=== PATIENT | male | born 1935 | race Caucasian/White ===

== ENCOUNTER → 2018-10-16 12:25 | Outpatient (CLI) | payer MEDICARE, OTHER, SELFPAY ==
--- NOTE | 2018-10-16 | DI.MRI.S_ITS ---
PROCEDURE: MR STROKE Pre- and post-contrast brain MRI, non-contrast brain MR angiogram, pre- and postcontrast neck MR angiogram INDICATIONS: TIA TECHNIQUE: Brain: Noncontrast axial T1 spin echo, axial T2 fast spin echo, sagittal and axial FLAIR, coronal T2 fast spin echo, axial gradient echo, axial diffusion and ADC through the brain. After the administration of contrast, axial 3D VIBE of the cranial vasculature and brain. Brain MRA: Non-contrast 3-D time of flight MR angiogram, with multiple cadpazw-smsdgxfbx-lzymguqrnr (MIP) reformats performed. Neck MRA: Axial and sagittal TruFISP through the neck. Coronal dynamic MR angiogram during administration of contrast in the arterial and venous phases, with 3-dimenstional idpqpss-qtrzvbkch-piizcesyvi (MIP) reformats constructed from subtraction images. COMPARISON: None. FINDINGS: Image quality: Excellent. BRAIN: CSF spaces: Ventricles are normal in size and shape. Basal cisterns are patent. No extra-axial fluid collections. Brain: No intracranial bleeds or mass effects. Mild diffuse cerebral volume loss is present. Minimal degree of patchy high FLAIR signal within the periventricular and subcortical white matter. Russ-white matter interface is normal. Diffusion weighted images show no acute ischemic insults. Brainstem appears normal. Normal intravascular flow voids are present. No abnormal intracranial enhancement. Skull and face: Calvarial marrow signal is normal. Orbits appear normal. Sinuses: Sinuses and mastoids are clear. BRAIN MR ANGIOGRAM: Anterior circulation: Intracranial internal carotid arteries are normal in size and enhancement. The flow within the paired anterior cerebral arteries is normal and symmetric. The flow within the middle cerebral arteries is normal and symmetric. The anterior communicating artery is seen. No stenoses, occlusions, or aneurysms. Posterior circulation: The visualized portions of the vertebral arteries demonstrate normal caliber, and join to form a normal appearing basilar artery. The flow within the posterior cerebral arteries is normal and symmetric. No stenoses, occlusions, or aneurysms. NECK MR ANGIOGRAM: There is suboptimal evaluation of the proximal great vessels secondary to artifact. Right subclavian artery is grossly patent. Right vertebral artery origin is not seen. Right vertebral artery is otherwise patent. Right common carotid artery is not well seen proximally, but is otherwise patent. Right internal and extra and carotid arteries are patent. Left common carotid artery is not well seen proximally, but is patent distally. Left internal and external carotid arteries are patent. Left subclavian artery is not well seen, but is patent as visualized. Left vertebral artery origin is not seen. The vertebral artery is otherwise patent. Inclusion Paraeducator T2 imaging through the neck is grossly unremarkable. IMPRESSION: BRAIN MRI: 1. No acute process. No recent infarct. 2. Mild volume loss and small vessel ischemic disease. BRAIN MR ANGIOGRAM: Negative cerebral MR angiography. NECK MR ANGIOGRAM: 1. No internal carotid artery stenosis bilaterally. 2. Suboptimally visualized vertebral artery origins which are otherwise patent. 3. Suboptimal evaluation of the proximal great vessels. Dictated by: Sanna Mancia M.D. on 10/16/2018 at 15:00 Approved by: Sanna Mancia M.D. on 10/16/2018 at 15:14
== END ==
PROVIDERS: Family Provider Internal Medicine; PCP Internal Medicine; Visit Provider Family Medicine
DX: G45.9 Transient cerebral ischemic attack, unspecified (principal)
CPT/HCPCS: 70553; A9579

== ENCOUNTER 2020-01-25 13:32 | Emergency (ER) | payer MEDICARE, OTHER, SELFPAY ==
--- NOTE | 2020-01-25 13:40 | DI.RAD.S_ITS ---
PROCEDURE: XR CHEST 1V INDICATIONS: chest pain TECHNIQUE: One view of the chest was acquired. COMPARISON: [facility], , CHEST 1 VIEW, 06/20/2015, 10:53. FINDINGS: Surgical changes and devices: None. Lungs and pleura: Lungs are clear. No pleural effusions or pneumothorax. Mediastinum: Mediastinal contours appear normal. Heart size is normal. Bones and chest wall: No suspicious bony lesions. Overlying soft tissues appear unremarkable. IMPRESSION: No acute cardiopulmonary findings. Dictated by: Ruthie Rueda M.D. on 01/25/2020 at 15:22 Approved by: Ruthie Rueda M.D. on 01/25/2020 at 15:22
[2020-01-25 13:58] VITALS: BP 141/73; PULSE 57; RESP 16; TEMP 35.9; O2SAT 98
[2020-01-25 14:08] LABS: Add Manual Diff / Slide Review NO; Basophils Absolute Auto 0 /uL (0-100); Basophils Percent Auto 0.6 % (0-2); Eosinophils Absolute Auto 200 /uL (0-450); Eosinophils Percent Auto 1.8 % (2-4); Hematocrit 36.9 % (41-53); Hemoglobin 13.1 g/dL (13.5-17.5); Lymphocytes Absolute Auto 700 /uL (1100-4500); Lymphocytes Percent Auto 7.9 % (25-40); Mean Corpuscular HGB Conc 35.4 % (30-36); Mean Corpuscular Hemoglobin 32.1 PG (26-34); Mean Corpuscular Volume 90.7 fL (80-100); Monocytes Absolute Auto 500 /uL (0-900); Monocytes Percent Auto 5.7 % (3-14); Neutrophils Absolute Auto 7400 /uL (1500-7000); Platelet Count 232 X10^3/uL (150-400); Red Blood Cell Count 4.07 X10^6/uL (4.5-5.9); Red Cell Distribution Width 13.7 % (11.6-14.8); White Blood Cell Count 8.8 X10^3/uL (4.5-11.0)
[2020-01-25 14:15] VITALS: BP 127/62; PULSE 58; RESP 20; O2SAT 99
[2020-01-25 14:20] LABS: INR 1.1 (0.9-1.3); Prothrombin Time 12.5 SECONDS (10.1-12.7)
[2020-01-25 14:23] LABS: PTT Partial Thromboplastin Tim 28 SECONDS (26.4-36.2)
[2020-01-25 14:26] LABS: Alanine Aminotransferase 18 IU/L (<50); Albumin 4.3 g/dL (3.5-5.0); Albumin Globulin Ratio 1.4 (1.0-2.8); Alkaline Phosphatase 68 U/L (38-126); Aspartate Aminotransferase 29 IU/L (17-59); BUN Creatinine Ratio 22.8 (6-22); Bilirubin Total 0.6 mg/dL (0.2-1.3); Blood Urea Nitrogen 18 mg/dL (9-20); Calcium 9.7 mg/dL (8.4-10.2); Carbon Dioxide 24 mmol/L (22-32); Chloride 106 mmol/L (98-107); Creatine Kinase 86 U/L (55-170); Estimated Glomerular Filt Rate > 60.0 mL/min (>60); Globulin 3.1 g/dL (1.7-4.1); Glucose 119 mg/dL (80-110); HEMOLYSIS < 15 (0-50); Lipase 58 U/L (23-300); Potassium 4.7 mmol/L (3.4-5.1); Sodium 138 mmol/L (137-145); Total Protein 7.4 g/dL (6.3-8.2)
[2020-01-25 14:36] LABS: Troponin I < 0.012 ng/mL (0.01-0.034)
[2020-01-25 15:05] VITALS: BP 155/63; PULSE 58; RESP 21; O2SAT 98
--- NOTE | 2020-01-25 15:27 | ED_ITS ---
HPI - Dizziness General Chief Complaint: Dizziness Stated Complaint: Dizzy Time Seen by Provider: 01/25/20 15:20 Source: patient Mode of arrival: Family Vehicle Limitations: no limitations History of Present Illness HPI Narrative: CC: dizziness HPI: The patient is an 84-year-old male who states that he was driving out of a long driveway from his son's house when he just did not feel right. He felt dizzy and lightheaded. He denied any specific vertigo but felt that his balance was off and had disequilibrium. He denied any fall or injury. He states that he had a significant headache with profuse sweating. His headache initially was 8/10 in intensity bifrontal and a intense throbbing headache. When he arrived in the emergency department was 4/10 in intensity. He denies that his dizziness felt like he was a satellite tumbling through space. He has a history of atrial fibrillation. He had no significant change in vision no diplopia no blind spots no half vision or partial vision loss. He states that his vision was slightly blurred. He denied any fall or injury to his head neck. He admits to a history of hypertension but denies a history of diabetes mellitus myocardial infarction COPD or asthma. At this time he does not smoke cigarettes nor does he drink alcohol. Related Data Previous Rx's Medication Instructions Recorded meclizine 25 mg PO TID PRN #15 tab 01/25/20 naproxen [Naprosyn] 500 mg PO BID PRN #20 tab 01/25/20 ondansetron HCl [Zofran] 4 mg PO Q6H PRN #15 tab 01/25/20 Allergies Allergy/AdvReac Type Severity Reaction Status Date / Time No Known Drug Allergies Allergy Verified 01/25/20 14:09 Review of Systems Review of Systems Narrative: REVIEW OF SYSTEMS: CONSTITUTIONAL: He denies any fever chills but has profuse sweat when he developed the dizziness and has a. NEUROLOGICAL: He complains of a bifrontal headache without numbness tingling paresthesias anesthesia is paresis or paralysis. EENT: He has had no loss of vision scotomata diplopia but has had blurred vision. CARDIO-PULMONARY: He denies any significant shortness of breath cough chest pain palpitations or dizziness. GASTROINTESTINAL: He denies any abdominal pain but has had nausea with vomiting. He had intense dry heaves associated with his dizziness and headache. He had no hematemesis coffee-ground emesis. He has had normal bowel movements without melena or hematochezia. GENITAL URINARY: He denies any urinary symptoms Patient History Social History Smoking Status: Never smoker Smoking Status: Never smoker alcohol intake frequency: 0-2 drinks per day Substance Use Type: does not use Exam Narrative Exam Narrative: PHYSICAL EXAM: CONSTITUTIONAL: Awake, Alert, Oriented, Coherent, Cooperative in NAD. Does not appear toxic or ill. HEAD: AT/NC EENT: PERRL, FROM of eyes, no discharge, no nystagmus. Full range of motion of his eyes. EARS:No drainage from the ears, Tympanic membranes intact bilaterally, clear EAC NOSE:No epistaxis or nasal drainage MOUTH:Oral mucosa is moist and pink, posterior pharynx is without erythema or exudate. NECK: Supple, no obvious JVD, Trachea is midline without stridor, no palpable LN. SPINE: Palpationof the cervical, Thoracic, Lumbar or Sacral spine reveals no gross deformity or tenderness. No CVA tenderness. THORAX: No deformity, retractions, chest wall tenderness. LUNGS: Clear, symmetrical breath sounds without respiratory distress. HEART: Normal heart tones, regular rhythm and rate without murmur. ABDOMEN: Soft, non-tender, without guarding, rebound, rigidity or palpable mass. EXTREMITIES: No edema, deformity, tenderness or cyanosis. SKIN: No rash, bruising, petechiae or purpura. NEURO: Awake, alert, oriented, conversive, cranial nerves II-XII are symmetrical , moves all 4 extremities and is ambulatory. The patient has symmetrical strength no drift finger to nose is within normal limits. Vcum-sc-xckt is within normal limits. His NIH stroke scale was 0 Initial Vital Signs Initial Vital Signs: Vital Signs Temperature 96.6 F L 01/25/20 13:58 Pulse Rate 57 L 01/25/20 13:58 Respiratory Rate 16 01/25/20 13:58 Blood Pressure 141/73 H 01/25/20 13:58 Pulse Oximetry 98 01/25/20 13:58 Course Course Course Narrative: 1624: persistent diziness , almost fell over 1748: The patient's CT angiogram of his head and neck revealed no significant intracranial arterial abnormality is seen. Within the arteries of the neck no hemodynamically significant stenosis can be seen areas of venous gas are seen including involving the cavernous sinus. Please correlate with known patient history including a difficult IV start. Any quantitative measurements of stenosis were performed usingNASCETcriteria. 1855: The patient's headache is much improved. It is about 2-3 over 10 in intensity. His dizziness has significantly improved. He had no vertigo walking to the bathroom. He will be discharged home on meclizine, Zofran, and Naprosyn. He was advised to follow-up with his primary care physician in 48-72 hours. Orders Ordered: ED Orders 01/25/20 13:40 XR chest 1V Stat EKG-12 Lead Stat 01/25/20 13:57 Comprehensive Metabolic Panel Stat Lipase Stat Partial Thromboplastin Time Stat Prothrombin Time INR Stat Troponin & CK Cardiac Panel Stat 01/25/20 14:00 Complete Blood Count AUTO DIFF Stat 01/25/20 14:04 Thyroid Stimulating Hormone Stat 01/25/20 15:44 CT head/brain wo con Stat 01/25/20 16:26 CT angio head and neck Stat Discontinued Medications Diphenhydramine HCl (Benadryl) 25 mg IV NOW ONE Stop: 01/25/20 15:45 Last Admin: 01/25/20 16:09 Dose: 25 mg Documented by: LAURA Sodium Chloride (Normal Saline 0.9%) 1,000 mls @ 1,000 mls/hr IV BOLUS ONE Stop: 01/25/20 16:43 Last Infusion: 01/25/20 18:33 Dose: 0 mls/hr Documented by: Admin: 01/25/20 16:10 Dose: 1,000 mls/hr Documented by: LAURA Ketorolac Tromethamine (Toradol) 15 mg IV NOW ONE Stop: 01/25/20 15:45 Last Admin: 01/25/20 16:09 Dose: 15 mg Documented by: LAURA Meclizine HCl (Antivert) 25 mg PO NOW ONE Stop: 01/25/20 16:27 Last Admin: 01/25/20 16:53 Dose: 25 mg Documented by: LAURA Methylprednisolone (Solu-Medrol 125 Mg Vial) 125 mg IV NOW ONE Stop: 01/25/20 15:45 Last Admin: 01/25/20 16:09 Dose: 125 mg Documented by: LAURA Metoclopramide HCl (Reglan) 10 mg IV NOW ONE Stop: 01/25/20 15:45 Last Admin: 01/25/20 16:09 Dose: 10 mg Documented by: LAURA Vital Signs Vital signs: Vital Signs - 8 hr 01/25/20 13:58 01/25/20 14:15 01/25/20 15:05 Temperature 96.6 F L Pulse Rate 57 L 58 L 58 L Pulse Rate [Orthostatic Lying] Pulse Rate [Orthostatic Sitting] Pulse Rate [Orthostatic Standing] Respiratory Rate 16 20 21 Blood Pressure 141/73 H Blood Pressure [Left Arm] 127/62 155/63 H Blood Pressure [Orthostatic Lying] Blood Pressure [Orthostatic Sitting] Blood Pressure [Orthostatic Standing] Pulse Oximetry 98 99 98 01/25/20 15:33 01/25/20 16:27 01/25/20 18:05 Temperature Pulse Rate 60 65 Pulse Rate [Orthostatic Lying] 56 L Pulse Rate [Orthostatic Sitting] 58 L Pulse Rate [Orthostatic Standing] 62 Respiratory Rate 20 20 Blood Pressure Blood Pressure [Left Arm] 148/85 H 137/63 Blood Pressure [Orthostatic Lying] 149/79 H Blood Pressure [Orthostatic Sitting] 144/75 H Blood Pressure [Orthostatic Standing] 147/80 H Pulse Oximetry 100 98 MDM - Dizziness Medical Records Attestation: I reviewed the patient's medical records. Lab Data Attestation: I reviewed the patient's lab results. Result diagrams: 01/25/20 14:00 01/25/20 13:57 Labs: Lab Results 01/25/20 01/25/20 01/25/20 Range/Units 13:57 13:57 14:00 WBC 8.8 (4.5-11.0) X10^3/uL RBC 4.07 L (4.5-5.9) X10^6/uL Hgb 13.1 L (13.5-17.5) g/dL Hct 36.9 L (41-53) % MCV 90.7 (80-100) fL MCH 32.1 (26-34) PG MCHC 35.4 (30-36) % RDW 13.7 (11.6-14.8) % Plt Count 232 (150-400) X10^3/uL Neut % (Auto) 84.0 H (50-75) % Lymph % (Auto) 7.9 L (25-40) % [place] % (Auto) 5.7 (3-14) % Eos % (Auto) 1.8 L (2-4) % Baso % (Auto) 0.6 (0-2) % Neut # (Auto) 7400 H (5258-3182) /uL Lymph # (Auto) 700 L (8060-1506) /uL Jefferson # (Auto) 500 (0-900) /uL Eos # (Auto) 200 (0-450) /uL Baso # (Auto) 0 (0-100) /uL PT 12.5 (10.1-12.7) SECONDS INR 1.1 (0.9-1.3) APTT 28 (26.4-36.2) SECONDS Sodium 138 (137-145) mmol/L Potassium 4.7 (3.4-5.1) mmol/L Chloride 106 (98-107) mmol/L Carbon Dioxide 24 (22-32) mmol/L BUN 18 (9-20) mg/dL Creatinine 0.79 (0.66-1.25) mg/dL Estimated GFR > 60.0 (>60) mL/min BUN/Creatinine Ratio 22.8 H (6-22) Glucose 119 H (80-110) mg/dL Calcium 9.7 (8.4-10.2) mg/dL Total Bilirubin 0.6 (0.2-1.3) mg/dL AST 29 (17-59) IU/L ALT 18 (<50) IU/L Alkaline Phosphatase 68 (38-126) U/L Total Creatine Kinase 86 (55-170) U/L CK-MB (CK-2) TNP CK-MB (CK-2) Rel Index TNP Troponin I < 0.012 (0.01-0.034) ng/mL Total Protein 7.4 (6.3-8.2) g/dL Albumin 4.3 (3.5-5.0) g/dL Globulin 3.1 (1.7-4.1) g/dL Albumin/Globulin Ratio 1.4 (1.0-2.8) Lipase 58 (23-300) U/L TSH (0.47-4.68) uIU/mL 01/25/20 Range/Units 14:04 WBC (4.5-11.0) X10^3/uL RBC (4.5-5.9) X10^6/uL Hgb (13.5-17.5) g/dL Hct (41-53) % MCV (80-100) fL MCH (26-34) PG MCHC (30-36) % RDW (11.6-14.8) % Plt Count (150-400) X10^3/uL Neut % (Auto) (50-75) % Lymph % (Auto) (25-40) % Jefferson % (Auto) (3-14) % Eos % (Auto) (2-4) % Baso % (Auto) (0-2) % Neut # (Auto) (1132-7517) /uL Lymph # (Auto) (8570-2258) /uL Jefferson # (Auto) (0-900) /uL Eos # (Auto) (0-450) /uL Baso # (Auto) (0-100) /uL PT (10.1-12.7) SECONDS INR (0.9-1.3) APTT (26.4-36.2) SECONDS Sodium (137-145) mmol/L Potassium (3.4-5.1) mmol/L Chloride (98-107) mmol/L Carbon Dioxide (22-32) mmol/L BUN (9-20) mg/dL Creatinine (0.66-1.25) mg/dL Estimated GFR (>60) mL/min BUN/Creatinine Ratio (6-22) Glucose (80-110) mg/dL Calcium (8.4-10.2) mg/dL Total Bilirubin (0.2-1.3) mg/dL AST (17-59) IU/L ALT (<50) IU/L Alkaline Phosphatase (38-126) U/L Total Creatine Kinase (55-170) U/L CK-MB (CK-2) CK-MB (CK-2) Rel Index Troponin I (0.01-0.034) ng/mL Total Protein (6.3-8.2) g/dL Albumin (3.5-5.0) g/dL Globulin (1.7-4.1) g/dL Albumin/Globulin Ratio (1.0-2.8) Lipase (23-300) U/L TSH 1.48 (0.47-4.68) uIU/mL ECG Data Attestation: I personally reviewed and interpreted this ECG as follows: Interpretation: The patient's EKG reveals sinus bradycardia with a ventricular rate of 58. His [place] interval is prolonged at 232 indicating that the patient has a first-degree AV block. QRS duration is normal at 90 milliseconds QTC is borderline at 451 milliseconds the patient has a normal axis. The patient has a QS wave in lead V1 an inverted T-waves in leads III and V1 there are no other acute diagnostic ST segment changes or T-waves. There is no signs of a stye immediately or infarct/injury. Discharge Plan Departure Patient Disposition: Home Clinical Impression: Dry heaves, Cold feeling, Dizziness Headache Qualifiers: Headache type: unspecified Headache chronicity pattern: acute headache Intractability: not intractable Qualified Code(s): R51 - Headache Discharge Date/Time: 01/25/20 19:17 Instructions: DI for Vertigo, DI for Vomiting -- Adult, DI for Headache Activity Restrictions/Additional Instructions: 1. Follow-up in be rechecked by your primary care physician in 48-72 hours. 2. If you develop a worsening headache, passing out, fever, persistent uncontrolled vomiting and dizziness you need to return to the emergency de partment. 3. Drink 2-3 L of fluid per day. 4 take Naprosyn 500 mg twice a day as needed for pain and headache. 5. Take Zofran 4 mg 1-2 tablets 3 times a day as needed for persistent vomiting and retching. 6. For the dizziness disequilibrium take meclizine 25 mg 3 times a day. Prescriptions: New naproxen [Naprosyn] 500 mg tablet 500 mg PO BID PRN (Reason: pain) Qty: 20 RF: 0 meclizine 25 mg tablet 25 mg PO TID PRN (Reason: dizziness) Qty: 15 RF: 0 ondansetron HCl [Zofran] 4 mg tablet 4 mg PO Q6H PRN (Reason: nausea and vomiting) Qty: 15 RF: 0 Referrals: Huong Dumont MD [Primary Care Provider] -
[2020-01-25 15:33] VITALS: BP 144/75; BP 147/80; BP 149/79; PULSE 56; PULSE 58; PULSE 62
--- NOTE | 2020-01-25 15:44 | DI.CT.S_ITS ---
PROCEDURE: CT HEAD/BRAIN WO CON INDICATIONS: bifrontal headache, dizziness, dry heaves TECHNIQUE: Noncontrast 4.5 mm thick angled axial sections acquired from the foramen magnum to the vertex, with coronal and sagittal reformats. For radiation dose reduction, the following was used: automated exposure control, adjustment of mA and/or kV according to patient size. COMPARISON: [facility], MR, MR STROKE, 10/16/2018, 13:30. FINDINGS: Image quality: Excellent. CSF spaces: Basal cisterns are patent. No extra-axial fluid collections. The ventricles are symmetric in size and shape. Brain: No intracranial bleeds or masses. There is cerebral volume loss for age, with resultant ventricular and sulcal prominence. There are periventricular and deep white matter chronic small vessel ischemic changes. 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 Skull and face: Calvarium and visualized facial bones appear intact, without suspicious lesions. Sinuses: Visualized sinuses and mastoids are clear. IMPRESSION: No acute intracranial disease process. Dictated by: Ginette Zimmerman MD, PhD on 01/25/2020 at 16:12 Approved by: Ginette Zimmerman MD, PhD on 01/25/2020 at 16:16
[2020-01-25] MEDS: diphenhydrAMINE 50 MG/ML VIAL 25 MG IV (16:09)
[2020-01-25] MEDS: METOCLOPRAMIDE 10 MG/2 ML INJ IV (16:09)
[2020-01-25] MEDS: KETOROLAC 60 MG/2 ML VIAL 15 MG IV (16:09)
[2020-01-25] MEDS: methylPREDNISolone 125 MG/2 ML VIAL IV (16:09)
[2020-01-25] MEDS: SODIUM CHLORIDE 0.9% 1,000 ML 1000 ML IV (16:10)
--- NOTE | 2020-01-25 16:26 | DI.CT.S_ITS ---
PROCEDURE: CT ANGIO HEAD AND NECK INDICATIONS: persistent dysequilibrium with vomiting TECHNIQUE: Noncontrast images were performed earlier in the day and not repeated. After the administration of intravenous contrast, 1 mm thick sections acquired from the aortic arch through the [place] of [place]. Post-contrast 4.5 mm thick sections then re-acquired from the foramen magnum to the vertex. 3-dimensional fizcxlo-wtxtwtquz-ylylixvela (MIP) and/or volume rendering reformats were acquired of the central intracranial vasculature and neck separately. COMPARISON: [facility], MR, MR STROKE, 10/16/2018, 13:30. [facility], CT, CT HEAD/BRAIN WO CON, 01/25/2020, 15:46. FINDINGS: Image quality: Excellent. BRAIN: CSF spaces: Ventricles are normal in size and shape. Basal cisterns are patent. No extra-axial fluid collections. Brain: No midline shift. No intracranial bleeds or masses. Russ-white matter interface appears intact. There is a venous gas can be seen, including within the cavernous sinus. Skull and face: Calvarium and facial bones appear intact, without suspicious lesions. Orbits appear normal. Sinuses: Sinuses and mastoids are clear. HEAD CT ANGIOGRAPHY: Anterior circulation: Intracranial internal carotid arteries are normal in size and flow. The flow within the paired anterior cerebral arteries is normal and symmetric. The flow within the middle cerebral arteries is normal and symmetric. The anterior communicating artery is seen. No aneurysms are seen. Posterior circulation: Visualized portions of the vertebral arteries demonstrate normal caliber, and join to form a normal appearing basilar artery. Flow within the posterior cerebral arteries is normal and symmetric. No aneurysms are seen. NECK CT ANGIOGRAPHY: Carotid system: The great vessels demonstrate a conventional anatomy as they arise from the aortic arch. The origins of the common carotid arteries appear patent. The common carotid arteries demonstrate normal caliber. The proximal common carotid arteries are widely tortuous. The bifurcation regions are both widely patent. The internal carotid arteries demonstrate normal calibers and courses. Posterior circulation: The origins of the vertebral arteries both appear widely patent. The more superior extracranial portions of both vertebral arteries also demonstrate normal courses and calibers. They join to form a normal appearing basilar artery. Soft tissues: Visualized neck soft tissues demonstrate no suspicious abnormalities. Bones: No suspicious bony lesions. Relatively prominent cervical spine degenerative changes are seen. Mild anterolisthesis is seen at C2-C3, with mild retrolisthesis at C3-C4. Minimal retrolisthesis is seen at C4-C5 and C5-C6. IMPRESSION: No significant intracranial arterial abnormality is seen. Within the arteries of the neck, no hemodynamically significant stenosis can be seen. Areas of venous gas are seen, including involving the cavernous sinus. Please correlate with known patient history, including a difficult IV start. Any quantitative measurements of stenosis were performed using NASCET criteria. Dictated by: David Arteaga M.D. on 01/25/2020 at 15:55 Approved by: David Arteaga M.D. on 01/25/2020 at 16:11
[2020-01-25 16:27] VITALS: BP 148/85; PULSE 60; RESP 20; O2SAT 100
[2020-01-25 16:33] LABS: Thyroid Stimulating Hormone 1.48 uIU/mL (0.47-4.68)
[2020-01-25] MEDS: MECLIZINE HCL 12.5 MG TABLET 25 MG PO (16:53)
[2020-01-25 18:05] VITALS: BP 137/63; PULSE 65; RESP 20; O2SAT 98
== END 2020-01-25 19:17 | disposition home or self-care (01) ==
PROVIDERS: Emergency Provider Emergency Medicine; Family Provider Internal Medicine; PCP Internal Medicine
DX: R42 Dizziness and giddiness (principal); I10 Essential (primary) hypertension; R51 Headache; R11.10 Vomiting, unspecified; R68.89 Other general symptoms and signs
CPT/HCPCS: 36415; 70450; 70496; 70498; 71045; 80053; 82550; 83690; 84443; 84484; 85025; 85610; 85730; 93005; 96361; 96374; 96375; 99284; J1200; J1885; J2765; J2930

== ENCOUNTER → 2020-04-25 09:49 | Outpatient (CLI) | payer MEDICARE, OTHER, SELFPAY ==
[2020-04-27 15:26] LABS: COVID19 Sendout Not Detected (Not Detect)
== END ==
PROVIDERS: Family Provider Internal Medicine; PCP Internal Medicine; Visit Provider Physician Assistant
DX: Z11.59 Encounter for screening for other viral diseases (principal)
CPT/HCPCS: 87635

== ENCOUNTER → 2020-04-28 09:32 | Outpatient (CLI) | payer MEDICARE, OTHER, SELFPAY ==
--- NOTE | 2020-04-28 | DI.NM.S_ITS ---
PROCEDURE: NM CALEB PERF SPECT REST & STR Rest and exercise myocardial perfusion SPECT with gated imaging and ejection fraction RADIOPHARMACEUTICAL: 13.5 mCi Tc-99m sestamibi IV at rest and 26.0 mCi Tc-99m sestamibi IV at peak exercise. A two day-protocol was performed. INDICATIONS: Paroxysmal atrial fibrillation TECHNIQUE: Radiopharmaceutical was injected at peak stress test, and also at rest. SPECT images were obtained. SPECT myocardial perfusion images were displayed in short axis, horizontal long axis, and vertical long axis views. Gated images were reviewed using [employer] software. COMPARISON: None. CARDIAC STRESS: A standard lexiscan 0.4mg IV X1 protocol was used as stress agent. Hemodynamic data: There is normal blood pressure response to exercise stress. Patient had atrial fibrillation with rapid ventricular response during the entire study (HR 120s-140sbpm) Symptoms: Patient denied chest pain during exercise. EKG: No diagnostic EKG changes of ischemia; no ectopy. FINDINGS: Raw data: There is good myocardial labeling by radiotracer. No significant motion artifacts. Yplv-ek-qwxed ratio is 0.38 (normal is less than 0.38 for sestamibi tracer, and less than 0.50 for thallium tracer). Left ventricle function: Gated images demonstrate normal left ventricle wall thickening. No segmental wall motion abnormality. No transient ischemic dilation; TID is 0.94 (normal less than 1.3). The left ventricle resting end-diastolic volume is 65 mL. Left ventricle stress ejection fraction is 83%; normal values are above 45%. Myocardial perfusion: There is normal distribution of activity in the left and right ventricular myocardium. No fixed or reversible perfusion defects. IMPRESSION: Low risk, normal pharmaceutical nuclear stress test. 1) No perfusion evidence of ischemia or infarction. 2) Normal left ventricular size, wall motion, and systolic function. 3) No angina during the study. 4) Atrial fibrillation with rapid ventricular response present during the entire study (HR 120s-140bpm). 5) Compared to the nuclear stress test done 01/21/2010, no changes in perfusion images but atrial fibrillation with RVR is noted on the current study. Dictated by: Abdoul Fuentes MD on 04/28/2020 at 16:39 Approved by: Abdoul Fuentes MD on 04/28/2020 at 16:44
== END ==
PROVIDERS: Family Provider Internal Medicine; Referring Provider Internal Medicine Cardiovascular Disease; Visit Provider Internal Medicine Cardiovascular Disease
DX: I48.0 Paroxysmal atrial fibrillation (principal)
CPT/HCPCS: 78452; 93017; A9502; J2785

== ENCOUNTER → 2020-05-10 11:26 | Outpatient (CLI) | payer MEDICARE, OTHER, SELFPAY ==
[2020-05-11 22:42] LABS: COVID19 Sendout Not Detected (Not Detect)
== END ==
PROVIDERS: Family Provider Internal Medicine; Visit Provider Physician Assistant
DX: Z11.59 Encounter for screening for other viral diseases (principal)
CPT/HCPCS: 87635

== ENCOUNTER → 2021-08-19 10:15 | Outpatient (CLI) | payer MEDICARE, OTHER, SELFPAY ==
[2021-08-19 11:18] LABS: COVID19 -Nasal RAPID Negative (Negative)
== END ==
PROVIDERS: Family Provider Internal Medicine; Visit Provider Surgery
DX: Z01.812 Encounter for preprocedural laboratory examination (principal); Z20.822 Contact with and (suspected) exposure to COVID-19
CPT/HCPCS: 87635; C9803

== ENCOUNTER 2021-08-20 11:45 | Day surgery (SDC) | payer MEDICARE, OTHER, SELFPAY ==
[2021-08-20 12:13] VITALS: BP 132/81; PULSE 60; RESP 16; TEMP 36.2; O2SAT 98; BMI 32.1
[2021-08-20] MEDS: LACTATED RINGERS 1,000 ML 200 ML IV (12:50)
--- NOTE | 2021-08-20 13:10 | PM.HP.1 ---
History of Present Illness History of Present Illness Date Patient Seen: 08/20/21 Time Patient Seen: 13:10 Chief complaint: SDC Narrative: 85-year-old man with bright red blood per rectum here for colonoscopy. Previously seen March 2021 please refer to the H&P for further detail. No interval changes in health. Continues to have intermittent bright red blood. Patient History Medical History GERD (gastroesophageal reflux disease) Hyperlipidemia Hypertension Lower urinary tract symptoms (LUTS) DIAMOND (obstructive sleep apnea) Osteoarthritis Steroid-induced acne Surgical History History of bilateral knee arthroplasty History of right hip replacement Family & Social History Family History Son Cancer Brother Cancer Social History: household members spouse Tobacco & Substance use: Smoking Status Never smoker alcohol intake current alcohol intake frequency 0-2 drinks per day Substance Use Type does not use Meds Home Medications and Allergies Home Medications Medication Instructions Recorded Confirmed Type apixaban 5 mg tablet (Eliquis) 5 mg PO BID tab 04/02/21 04/02/21 History metoprolol tartrate 50 mg tablet 50 mg PO BID tab 04/02/21 04/02/21 History Allergies Allergy/AdvReac Type Severity Reaction Status Date / Time No Known Drug Allergies Allergy Verified 08/20/21 12:11 Exam Vital Signs (past 8 hours): - 08/20/21 12:13 Temperature 97.1 F L Pulse Rate 60 Respiratory Rate 16 Blood Pressure 132/81 Pulse Oximetry 98 Oxygen Delivery Method Room Air Narrative Exam Narrative: GENERAL: Elderly male in no apparent distress HEENT: No scleral icterus CV: Regular rate, no peripheral edema LUNGS: No increased work of breathing. Patient speaks in full sentences without oxygen support. ABDOMEN: Soft, non-tender, non-distended NEURO: Nonfocal, normal strength throughout, normal gait. SKIN: Warm and dry Assessment & Plan Assessment and plan (1) Rectal bleeding: Status: Acute Assessment & Plan narrative: The patient requires colonoscopy secondary to rectal bleeding. Technical details were discussed. Risks, benefits, alternatives explained. Risks including but not limited to myocardial infarction, aspiration, bleeding, pain, missed lesion, incomplete examination, need for further radiographic studies, colonic perforation, and need for major abdominal surgery were discussed. All questions were answered to their satisfaction, and they are in agreement with this plan. Time Spent With Patient Critical Care time: I spent a total of [] minutes of critical care time on this patient's care today; this time is exclusive of procedural time.
[2021-08-20] MEDS: MIDAZOLAM 5 MG/5 ML VIAL IV (13:31)
[2021-08-20] MEDS: fentaNYL 250 MCG/5 ML INJ IV (13:32)
--- NOTE | 2021-08-20 13:35 | P.OP.COLON_ITS ---
Operative Date/Time/Diagnoses Date of procedure: 08/20/21 Time of procedure: 13:35 Pre-op diagnosis: Rectal bleeding Post-op diagnosis: other (Internal hemorrhoids) Procedure & Clinicians Study performed: Colonoscopy Same procedure as scheduled: Yes Indications: Rectal bleeding Surgeon: Joe Solitario Procedure Notes Procedure in detail: Medications: Conscious sedation using 4 mg IV midazolam and 100mcg IV of fentanyl The history and physical was performed/updated and the patient is ASA class is *. The procedure was discussed in detail with the patient. Potential risks complications including infection, bleeding, missed diagnosis, perforation, need for surgery, and were explained. Their questions were answered and informed consent was obtained. Patient was brought to the procedure room and placed standard monitoring eq uipment. The patient's vital signs were monitored continuously throughout the entire procedure. Prior to starting time-out was performed. The patient was placed in the left lateral recumbent position. Procedural sedation was administered. Examination began with a thorough inspection of the perianal area there was no evidence of fissures, fistulae, external hemorrhoids or cutaneous malignancy. The colonoscopy scope was then placed into the anal canal and was advanced to the cecum, which was identified by the ileocecal valve, the appendiceal orifice and the confluence of the taenia. The scope was then slowly withdrawn examining colon thoroughly in all directions, irrigating it of any residual stool. FINDINGS 1. No colonic polyps masses or inflammation 2. Grade 2 internal hemorrhoids nonbleeding The patient tolerated the procedure well. They will be discharged once criteria are met. The prep was of good/excellent quality. The withdrawl time was 7 minutes. The sedation time was 16 minutes. Specimen(s): none sent Complications: none Impression: Internal hemorrhoids Post-procedure Recommendations: High fiber diet Disposition: same day surgery
[2021-08-20 13:39] VITALS: BP 127/73; PULSE 60; RESP 16; TEMP 36.5; O2SAT 98
[2021-08-20 13:43] VITALS: BP 115/68; PULSE 62; RESP 12; O2SAT 95
[2021-08-20 13:48] VITALS: BP 105/68; PULSE 59; RESP 22; O2SAT 94
[2021-08-20 13:53] VITALS: BP 137/72; PULSE 56; RESP 16; O2SAT 97
== END 2021-08-20 14:22 | disposition home or self-care (01) ==
PROVIDERS: Family Provider Internal Medicine; Referring Provider Surgery; Visit Provider Surgery
PROC: 0DJD8ZZ Inspection of Lower Intestinal Tract, Via Natural or Artificial Opening Endoscopic (ICD-10-PCS; CPT 45378; principal; 2021-08-20 13:00)
DX: K64.1 Second degree hemorrhoids (principal); K21.9 Gastro-esophageal reflux disease without esophagitis; E78.5 Hyperlipidemia, unspecified; I10 Essential (primary) hypertension; G47.33 Obstructive sleep apnea (adult) (pediatric)
CPT/HCPCS: 45378; 99152; J2250; J3010

== ENCOUNTER → 2021-11-02 09:06 | Outpatient (CLI) | payer MEDICARE, OTHER, SELFPAY ==
[2021-11-02 12:44] LABS: COVID19 -Nasal RAPID Negative (Negative)
== END ==
PROVIDERS: Family Provider Internal Medicine; Visit Provider Surgery
DX: Z01.812 Encounter for preprocedural laboratory examination (principal); Z20.822 Contact with and (suspected) exposure to COVID-19
CPT/HCPCS: 87635; C9803

== ENCOUNTER 2021-11-03 12:48 | Day surgery (SDC) | payer MEDICARE, OTHER, SELFPAY ==
[2021-11-03] VITALS (7 sets, daily range): BP systolic 117–133; BP diastolic 67–78; PULSE 54–64; RESP 12–21; TEMP 36.3–36.6; O2SAT 95–97; BMI 32.0
--- NOTE | 2021-11-03 | PATH_ITS ---
[facility] Accession Number: [id number] No. of containers..02 Tissue . 01 Material submitted: . PART A: gastrointestinal site - RANDOM GASTRIC BIOPSY PART B: esophagus - ESOPHAGEAL BIOPSY . 02 Diagnosis: A. Random Gastric Biopsy: Portions of gastric body type mucosa with mild chronic inflammation and patchy dilated fundic glands. Negative for Helicobacter organisms by immunohistochemistry studies. Negative for intestinal metaplasia. Negative for dysplasia or malignancy. . B. Esophageal Biopsy: Squamous mucosa with increased intraepithelial eosinophils (up to 25 per high power field. See comment. Negative for dysplasia and malignancy. Fragments of fibrinopurulent exudate, suggestive of nearby ulceration, are also present. Negative for fungal organisms by PAS stain. [facility] 11/06/2021 1605 Local . 02 Comment: B. In the proper clinical setting, the histopathologic appearance would support a clinical impression of eosinophilic esophagitis. The differential diagnosis includes drug reaction, gastroesophageal reflux, and food allergies. . There is no evidence of viral cytopathic effect. . 02 Electronically signed: . Hien Drew MD, Pathologist NPI- [id number] . 01 Gross description: . Part A: RANDOM GASTRIC BIOPSY: Received in formalin are 2 fragment(s) of salmon, soft tissue measuring 0.1 x 0.1 x 0.1 cm to 0.3 x 0.3 x 0.2 cm submitted entirely in 1 cassette(s) Part B: ESOPHAGEAL BIOPSY: Received in formalin are 4 fragment(s) of salmon, soft tissue measuring 0.1 x 0.1 x 0.1 cm to 0.3 x 0.2 x 0.2 cm submitted entirely in 1 cassette(s) /KEANU 11/05/2021 0055 Local . 02 Microscopic: . A. An immunohistochemical stain was performed on block A1 to evaluate for Helicobacter organisms and is negative for Helicobacter organisms by immunohistochemistry studies. The control stain showed appropriate reactivity. . B. A PAS stain is performed on block B1 to evaluate for fungal organisms and is negative for fungal organisms by PAS stain. The control stain showed appropriate reactivity. . * This test was developed and its performance characteristics determined by [facility]. It has not been cleared or approved by the U.S. Food and Drug Administration. The FDA has determined that such clearance or approval is not necessary. This test is used for clinical purposes. It should not be regarded as investigational or for research. . 02 Pathologist provided ICD-10: R13.10 . 02 CPT . 624432, 982846, U96201, 391163 Specimen Comment: A courtesy copy of this report has been sent to [phone] Performed at: 01 [facility] [address] [id number] MD Raj Ocampo MD Phone: [phone] Performed at: 02 [facility] [address] [place] [id number] MD Gracie Goldstein MD Phone: [phone]
[2021-11-03] MEDS: LACTATED RINGERS 1,000 ML 200 ML IV (13:23)
--- NOTE | 2021-11-03 14:25 | PM.PREOP ---
Pre-operative Note Interval Note History & Physical reviewed/Exam performed by Physician: Yes Changes to H&P: No
[2021-11-03] MEDS: LIDOCAINE 4% SOLN 50 ML 20 ML TOP (14:39)
[2021-11-03] MEDS: MIDAZOLAM 5 MG/5 ML VIAL IV (14:42)
[2021-11-03] MEDS: fentaNYL 250 MCG/5 ML INJ IV (14:42)
--- NOTE | 2021-11-03 14:58 | PM.OP.EGD ---
Operative Date/Time/Diagnoses Date of procedure: 11/03/21 Time of procedure: 14:58 Pre-op diagnosis: Esophageal dysphagia Post-op diagnosis: other (Gastritis and esophagitis) Procedure & Clinicians Study performed: Esophagoduodenoscopy Same procedure as scheduled: Yes Indications: Dysphagia Surgeon: Joe Solitario Procedure Notes Procedure in detail: Patient placed in left lateral decubitus position. Time out was performed. Procedural sedation was administered with Versed and Fentanyl. A bite block was placed. the scope was inserted into the mouth and advanced through the esophagus and into the stomach. The esophagus was notable for moderate esophagitis with friable mucosa. Random biopsies of the esophagus were performed with biopsy forceps. The stomach was notable for gastritis random biopsies were taken there was no distinct ulcers or active bleeding. The scope was retroflexed within the stomach and there was a small hiatal hernia. The scope was withdrawn into the esophagus the Z line was seen at 40 cm from the incisions. There was no Matthews's esophagitis or masses or strictures. Stomach was desufflated and scope removed. Patient tolerated procedure well. Specimen(s): other (Random gastric and esophageal) Complications: none Impression: Gastritis and esophagitis Post-procedure Plan for aftercare: Omeprazole 20 mg twice daily Disposition: same day surgery
== END 2021-11-03 15:45 | disposition home or self-care (01) ==
PROVIDERS: Family Provider Internal Medicine; PCP Internal Medicine; Referring Provider Surgery; Visit Provider Surgery
PROC: 0DJ08ZZ Inspection of Upper Intestinal Tract, Via Natural or Artificial Opening Endoscopic (ICD-10-PCS; CPT 43235; principal; 2021-11-03 14:30)
DX: K29.50 Unspecified chronic gastritis without bleeding (principal); K21.00 Gastro-esophageal reflux disease with esophagitis, without bleeding; G47.33 Obstructive sleep apnea (adult) (pediatric); I10 Essential (primary) hypertension; K44.9 Diaphragmatic hernia without obstruction or gangrene
CPT/HCPCS: 43239; J2250; J3010

== ENCOUNTER 2021-11-08 01:39 | Emergency (ER) | payer MEDICARE, OTHER, SELFPAY ==
[2021-11-08 01:51] VITALS: BP 203/91; PULSE 67; RESP 18; O2SAT 97; BMI 31.3
[2021-11-08 01:55] VITALS: TEMP 36.1
--- NOTE | 2021-11-08 01:56 | PC.NURSE ---
right flank and back pain that feels like previous kidney stones, pt states he has always passed his stones
--- NOTE | 2021-11-08 02:05 | DI.CT.S_ITS ---
PROCEDURE: CT KIDNEY URETER BLADDER (KUB) INDICATIONS: right flank pain TECHNIQUE: Axial sections were acquired from the lung bases to the pubic symphysis. Coronal and sagittal reformats were performed. For radiation dose reduction, the following was used: automated exposure control, adjustment of mA and/or kV according to patient size. COMPARISON: [facility], CT, KIDNEY/ URETER/BLADDER, 08/06/2017, 19:15. FINDINGS: Image quality: Excellent. Lung bases: Unremarkable. And small hiatal hernia Heart: No significant findings. URINARY: Right Kidney: Mild perinephric stranding present. Small nonobstructing bilateral calculi present. Right Ureter: 3.4 x 3.3 mm calculus noted at the right ureterovesical junction resulting in jizq-[id number]-[id number] right hydronephrosis and hydroureter. Left Kidney: Small nonobstructing bilateral renal calculi present. 2 cm low-density lesion in the left renal cortex probably reflects cyst, stable from the prior. No hydronephrosis. Left Ureter: No hydroureter. Bladder: Normal wall thickness. No stones. ABDOMEN: Liver: Unremarkable. Gallbladder: Unremarkable. Biliary ducts: Unremarkable. Pancreas: Unremarkable. Spleen: Unremarkable. Adrenal Glands: Unremarkable. Stomach and Bowel: Stomach, small bowel loops, and colon are unremarkable. Peritoneum: No abnormal intraperitoneal fluid. No free air. Multiple diverticula arise from the sigmoid colon without evidence of diverticulitis. Ventral Wall: No hernia. Abdominal Nodes: No enlarged retroperitoneal or mesenteric lymph nodes. Vessels: Aorta and inferior vena cava are normal in size. PELVIS: Pelvic Organs: Unremarkable. Pelvic Nodes: Unremarkable. Miscellaneous: No inguinal hernias are seen. Bones: Total right hip prosthesis in good position. IMPRESSION: 1. Small 3.4 mm calculus at the right ureterovesical junction results in jeap-[id number]-[id number] right hydronephrosis/hydroureter. 2. Incidental bilateral nonobstructing renal calculi. Left renal cysts. Diverticulosis without evidence of diverticulitis. Note: Final report is concordant with preliminary interpretation by [facility] Approved by: Edvin López M.D. on 11/08/2021 at 6:47
--- NOTE | 2021-11-08 02:06 | ED.ABDPAIN ---
HPI - Abdominal Pain General Chief Complaint: Urogenital-Male Stated Complaint: kidney pain/stones x2 hours Time Seen by Provider: 11/08/21 01:45 Source: patient Mode of arrival: Ambulatory History of Present Illness HPI narrative: Patient is an 86-year-old male history of atrial fibrillation on Eliquis and kidney stones presenting today with right flank pain. He says it started about an hour half ago. He says it feels like previous kidney stones. He has never had any intervention for them. He thought maybe his urine was dark a few days prior but really has not noticed any discomfort. He denies any painful or frequent urination. This evening he got very nauseous and had intense pain. It is radiating around to the front. No chest pain palpitations or shortness of breath. Related Data Home Medications Medication Instructions Recorded Confirmed apixaban 5 mg tablet (Eliquis) 5 mg PO BID tab 04/02/21 11/08/21 metoprolol tartrate 50 mg tablet 50 mg PO BID tab 04/02/21 11/08/21 Previous Rx's Medication Instructions Recorded omeprazole 20 mg tablet,delayed 20 mg PO BID #90 tab 11/03/21 release hydrocodone 5 mg-acetaminophen 325 1 tab PO Q6H PRN #10 tab 11/08/21 mg tablet ondansetron 4 mg disintegrating 4 mg PO Q8H PRN #10 tab 11/08/21 tablet Allergies Allergy/AdvReac Type Severity Reaction Status Date / Time No Known Drug Allergies Allergy Verified 11/03/21 13:06 Review of Systems Review of Systems Narrative: GENERAL: Denies chills, fatigue, malaise, fever, sweats, travel HEENT: Denies sinus pain, ear pain, sore throat, difficulty swallowing, neck pain RESPIRATORY: Denies dyspnea, cough, wheezing, hemoptysis, sputum. CARDIOVASCULAR: Denies chest pain, palpitations, orthopnea, edema GASTROINTESTINAL: See HPI : See HPI MUSCULOSKELETAL: Denies weakness, joint pain, or bony pain SKIN: No rash, no erythema, no pruritus NEUROLOGIC: Denies weakness, dizziness, headache, numbness, change in speech, confusion PSYCHIATRIC: No concerning psychosocial issues. 12 point review of systems is negative except for those stated above and HPI Patient History Medical History GERD (gastroesophageal reflux disease) Hyperlipidemia Hypertension Lower urinary tract symptoms (LUTS) DIAMOND (obstructive sleep apnea) Osteoarthritis Steroid-induced acne Surgical History History of bilateral knee arthroplasty History of right hip replacement Family History Son Cancer Brother Cancer Social History marital status: household members: none Smoking Status: Never smoker alcohol intake: current caffeine: Yes Smoking Status: Never smoker alcohol intake frequency: a few times a week Substance Use Type: does not use Exam Initial Vital Signs Initial Vital Signs: Vital Signs Pulse Rate 67 11/08/21 01:51 Respiratory Rate 18 11/08/21 01:51 Blood Pressure 203/91 H 11/08/21 01:51 Pulse Oximetry 97 11/08/21 01:51 GENERAL: Alert 86-year-old male appears uncomfortable HEENT: Head atraumatic,EOMI, pupils reactive, face symmetric, moist mucous membranes CARDIOVASCULAR: Regular rate and rhythm without murmurs, rubs or gallops. RESPIRATORY: Breath sounds equal bilaterally, no wheezes rales or rhonchi. ABDOMEN: Soft, nontender. Normoactive bowel sounds all 4 quadrants. No guarding or rebound. : Mild right CVA tenderness EXTREMITIES: Normal range of motion, no clubbing or edema. Neurovascularly intact NEUROLOGICAL: Alert and oriented x4.Normal gait and speech. SKIN: Warm, dry, no laceration, no petechiae, no rashes or lesions. Course Orders Ordered: ED Orders 11/08/21 02:00 Complete Blood Count AUTO DIFF Stat Comprehensive Metabolic Panel Stat Lipase Stat 11/08/21 02:05 CT kidney ureter bladder (KUB) Stat 11/08/21 04:25 Urine Culture Stat Urine Microscopic Stat Discontinued Medications Hydrocodone Bitart/Acetaminophen (Hydrocodone/Acet 5/325 Prepack) 1 bottle MISC SEEINSTR ONE Stop: 11/08/21 04:16 Last Admin: 11/08/21 04:40 Dose: 1 bottle Documented by: RADHIKA Hydromorphone HCl (Hydromorphone 0.5 Mg Inj) 0.5 mg IV NOW ONE Stop: 11/08/21 02:06 Last Admin: 11/08/21 02:11 Dose: 0.5 mg Documented by: RADHIKA Hydromorphone HCl (Hydromorphone 0.5 Mg Inj) 0.5 mg IV NOW ONE Stop: 11/08/21 03:05 Last Admin: 11/08/21 03:06 Dose: 0.5 mg Documented by: RADHIKA Ondansetron HCl (Ondansetron 4 Mg/2 Ml Inj) 4 mg IV NOW ONE Stop: 11/08/21 02:06 Last Admin: 11/08/21 02:11 Dose: 4 mg Documented by: RADHIKA Ondansetron HCl (Ondansetron 4 Mg Odt Prepack) 1 bottle MISC SEEINSTR ONE Stop: 11/08/21 04:16 Last Admin: 11/08/21 04:40 Dose: 1 bottle Documented by: RADHIKA Vital Signs Vital signs: Vital Signs - 8 hr 11/08/21 01:51 11/08/21 01:55 11/08/21 04:49 Temperature 97 F L Pulse Rate 67 71 Respiratory Rate 18 18 Blood Pressure 203/91 H 185/94 H Pulse Oximetry 97 98 MDM - Abdominal Pain Lab Data Result diagrams: 11/08/21 02:00 11/08/21 02:00 Labs: Lab Results 11/08/21 11/08/21 11/08/21 Range/Units 02:00 02:00 04:25 WBC 8.2 (4.5-11.0) X10^3/uL RBC 4.19 L (4.5-5.9) X10^6/uL Hgb 12.8 L (13.5-17.5) g/dL Hct 38.0 L (41-53) % MCV 90.6 (80-100) fL MCH 30.7 (26-34) PG MCHC 33.8 (30-36) % RDW 13.2 (11.6-14.8) % Plt Count 239 (150-400) X10^3/uL Neut % (Auto) 77.8 H (50-75) % Lymph % (Auto) 11.9 L (25-40) % [place] % (Auto) 7.4 (3-14) % Eos % (Auto) 2.2 (2-4) % Baso % (Auto) 0.7 (0-2) % Neut # (Auto) 6400 (3692-6884) /uL Lymph # (Auto) 1000 L (2687-9849) /uL [place] # (Auto) 600 (0-900) /uL Eos # (Auto) 200 (0-450) /uL Baso # (Auto) 100 (0-100) /uL Sodium 139 (137-145) mmol/L Potassium 3.8 (3.4-5.1) mmol/L Chloride 105 (98-107) mmol/L Carbon Dioxide 27 (22-32) mmol/L BUN 13 (9-20) mg/dL Creatinine 0.98 (0.66-1.25) mg/dL Estimated GFR > 60.0 (>60) mL/min BUN/Creatinine Ratio 13.3 (6-22) Glucose 127 H (80-110) mg/dL Calcium 8.9 (8.4-10.2) mg/dL Total Bilirubin 0.5 (0.2-1.3) mg/dL AST 31 (17-59) IU/L ALT 20 (<50) IU/L Alkaline Phosphatase 61 (38-126) U/L Total Protein 8.4 H (6.3-8.2) g/dL Albumin 4.7 (3.5-5.0) g/dL Globulin 3.7 (1.7-4.1) g/dL Albumin/Globulin Ratio 1.3 (1.0-2.8) Lipase 76 (23-300) U/L Urine RBC 30-100/hpf H (0-5/HPF) Urine WBC 0-1/hpf (0-5/HPF) Ur Squamous Epith Cells 0-1 /hpf (0-5/HPF) Urine Bacteria Few (2-10) H (None) Urine Mucus 1+ H (Negative) Ur Culture Indicated? Culture not indicate Point of care testing: Urine Dip Bedside Urine Glucose Negative Bedside Urine Bilirubin - Negative Bedside Urine Ketone - Negative Urine Specific Rhe[place] 1.015 Bedside Urine Occult Blood +++ Bedside Urine pH 7 Bedside Urine Protein - Negative Bedside Urine Urobilinogen - Negative Bedside Urine Nitrite - Negative Bedside Urine Leukocytes - Negative Esterase Imaging Data CT scan - abdomen/pelvis: Radiologist's Impression: Preliminary report 3.4 mm right UVJ junction stone with yplq-bk-joyjvaeh right hydronephrosis and perinephric fat stranding MDM Narrative Medical decision making narrative: Patient is given Lomotil pain. Still has intermittent pain and discomfort. Blood work is overall reassuring no sign of infection at this time. He did stand up to use the restroom he ambulated to the restroom without any assistance but slightly unsteady. Not a candidate for Toradol due to Eliquis. At this time recommend outpatient follow-up. I anticipate he will pass his kidney stone soon. Discharge Plan Departure Patient Disposition: Home Clinical Impression: Kidney stones Instructions: DI for Kidney Stones Activity Restrictions/Additional Instructions: *You have been diagnosed with kidney stone *What to do: At this time you do have a small right-sided kidney stone. I anticipate that you pass it in the next 24 hours. No sign of infection. *Continue to take medications as directed [place] 1 tablet every 6 hours if needed for severe pain Zofran 4 mg every 8 hours if needed for nausea or vomiting *Follow up with your primary care provider in 2-3 days or call [phone] *Return to ER if you should have increasing pain persistent vomiting, fever or any new, worsening or concerning symptoms CONTROLLED SUBSTANCE DISCHARGE (Narcotoic/benzodiazepine/Flexeril/Phenergan) 1. You have been prescribed narcotic medications, it does have acetaminophen/Tylenol/paracetamol in it, DO NOT TAKE MORE THAN 4,00mg in 24 hours of Tylenol. TRAMADOL DOES NOT CONTAIN TYLENOL 2. Please understand that we cannot provide further refills of narcotics, benzodiazepines or controlled substances through the ED and her pain management will need to be through your provider. 3. While on these medications you cannot drive or operate heavy machinery. 4. You cannot sign legal documents or perform any duties such as this. 5. As long as you're taking opiate pain medications he should also be taking a stool softener such as Colace, Dulcolax, MiraLAX or prune juice, to help avoid constipation. Prescriptions: New hydrocodone-acetaminophen 5-325 mg tablet 1 tab PO Q6H PRN (Reason: pain) Qty: 10 0RF ondansetron 4 mg tablet,disintegrating 4 mg PO Q8H PRN (Reason: nausea and vomiting) Qty: 10 0RF No Action Eliquis 5 mg tablet 5 mg PO BID 0RF metoprolol tartrate 50 mg tablet 50 mg PO BID 0RF omeprazole 20 mg tablet,delayed release (DR/EC) 20 mg PO BID Qty: 90 0RF Referrals: Carley Manzano MD [Primary Care Provider] -
[2021-11-08] MEDS: ONDANSETRON 4 MG/2 ML INJ IV (02:11)
[2021-11-08] MEDS: HYDROMORPHONE 0.5 MG INJ IV ×2 (02:11→03:06)
[2021-11-08 02:17] LABS: Alanine Aminotransferase 20 IU/L (<50); Albumin 4.7 g/dL (3.5-5.0); Albumin Globulin Ratio 1.3 (1.0-2.8); Alkaline Phosphatase 61 U/L (38-126); Aspartate Aminotransferase 31 IU/L (17-59); BUN Creatinine Ratio 13.3 (6-22); Bilirubin Total 0.5 mg/dL (0.2-1.3); Blood Urea Nitrogen 13 mg/dL (9-20); Calcium 8.9 mg/dL (8.4-10.2); Carbon Dioxide 27 mmol/L (22-32); Chloride 105 mmol/L (98-107); Estimated Glomerular Filt Rate > 60.0 mL/min (>60); Globulin 3.7 g/dL (1.7-4.1); Glucose 127 mg/dL (80-110); HEMOLYSIS < 15 (0-50); Lipase 76 U/L (23-300); Potassium 3.8 mmol/L (3.4-5.1); Sodium 139 mmol/L (137-145); Total Protein 8.4 g/dL (6.3-8.2)
[2021-11-08 02:23] LABS: Add Manual Diff / Slide Review NO; Basophils Absolute Auto 100 /uL (0-100); Basophils Percent Auto 0.7 % (0-2); Eosinophils Absolute Auto 200 /uL (0-450); Eosinophils Percent Auto 2.2 % (2-4); Hemoglobin 12.8 g/dL (13.5-17.5); Lymphocytes Absolute Auto 1000 /uL (1100-4500); Lymphocytes Percent Auto 11.9 % (25-40); Mean Corpuscular HGB Conc 33.8 % (30-36); Mean Corpuscular Hemoglobin 30.7 PG (26-34); Mean Corpuscular Volume 90.6 fL (80-100); Monocytes Absolute Auto 600 /uL (0-900); Monocytes Percent Auto 7.4 % (3-14); Neutrophils Absolute Auto 6400 /uL (1500-7000); Neutrophils Percent Auto 77.8 % (50-75); Platelet Count 239 X10^3/uL (150-400); Red Blood Cell Count 4.19 X10^6/uL (4.5-5.9); Red Cell Distribution Width 13.2 % (11.6-14.8); White Blood Cell Count 8.2 X10^3/uL (4.5-11.0)
[2021-11-08] MEDS: HYDROCODONE/ACET 5/325 PREPACK 1 BOTTLE MISC (04:40)
[2021-11-08] MEDS: ONDANSETRON 4 MG ODT PREPACK 1 BOTTLE MISC (04:40)
[2021-11-08 04:46] LABS: RBC Urine 30-100/HPF (0-5/HPF); Squamous Epithelial Cell Urine 0-1 /HPF (0-5/HPF); WBC Urine 0-1/HPF (0-5/HPF)
[2021-11-08 04:47] LABS: Bacteria Urine Few (2-10); Mucus Urine 1+ (Negative)
[2021-11-08 04:49] VITALS: BP 185/94; PULSE 71; RESP 18; O2SAT 98
== END 2021-11-08 04:51 | disposition home or self-care (01) ==
PROVIDERS: Emergency Provider Emergency Medicine; Family Provider Internal Medicine; PCP Internal Medicine
DX: N20.0 Calculus of kidney (principal)
CPT/HCPCS: 36415; 74176; 80053; 81003; 81015; 83690; 85025; 87086; 96374; 96375; 96376; 99284; J1170; J2405

== ENCOUNTER → 2022-12-22 10:19 | Outpatient (CLI) | payer MEDICARE, OTHER, SELFPAY ==
--- NOTE | 2022-12-22 | DI.MRI.S_ITS ---
PROCEDURE: MR LUMBAR SPINE WO CON INDICATIONS: Intervertebral disc disorders with radiculopathy, lumbar reg TECHNIQUE: Noncontrast sagittal T1 spin echo and T2 fast echo, sagittal STIR, and T2 fast spin echo through the lumbar spine. In cases with scoliosis, additional coronal T2 fast spin echo may be performed. COMPARISON: None. FINDINGS: Image quality: Excellent. Alignment and Curvature: 5 mm anterolisthesis of L2 on L3. Trace retrolisthesis of L3 on L4. Bone Marrow: Marrow is of normal overall signal. No acute vertebral body compression fractures. Spinal Cord: Conus medullaris terminates at the L1-L2 level. Visualized cord demonstrates normal signal and size. Paraspinous Soft Tissues: No paravertebral masses. T12-L1: Normal appearance. L1-L2: Moderately severe disc height loss. Posterior disc post osteophyte. Facet hypertrophy. Mild canal stenosis. Zupz-gm-hcoxegdt right foraminal narrowing. Moderate left foraminal narrowing with flattening deformity on the exiting left L1 nerve root. L2-L3: Anterolisthesis of L4 on L5. Prominent facet hypertrophy. Epidural lipomatosis. Severe canal stenosis. Mild right foraminal narrowing. Moderate left foraminal narrowing with flattening deformity on the exiting left L2 nerve root. L3-L4: Severe disc height loss. Posterior disc plus osteophyte. Facet hypertrophy. Epidural lipomatosis. Severe canal stenosis. Xbhj-sb-meevcqnl right foraminal narrowing. Moderate left foraminal narrowing with flattening deformity on the exiting left L3 nerve root. L4-L5: Severe disc height loss. Disc bulge. Prominent facet hypertrophy. Epidural lipomatosis. Severe canal stenosis. Severe right foraminal narrowing with impingement on the exiting right L4 nerve root. Moderate to severe left foraminal narrowing with a degree of impingement on the exiting left L4 nerve root. L5-S1: Posterior disc plus osteophyte. Facet hypertrophy. No significant canal stenosis. Moderate to severe bilateral foraminal narrowing with a degree of bilateral foraminal L5 nerve root impingement. IMPRESSION: 1. Diffuse degenerative change with significant multilevel degenerative disc space loss and facet arthropathy. 2. Canal stenosis is severe at L2-L3, severe at L3-L4, and severe at L4-L5. 3. Multilevel foraminal narrowing as described above. Findings include severe right foraminal narrowing and moderate to severe left foraminal narrowing at L4-L5, as well as bilateral moderate to severe foraminal narrowing at L5-S1. Dictated by: Brooks Zelaya M.D. on 12/22/2022 at 13:15 Approved by: Brooks Zelaya M.D. on 12/22/2022 at 13:31
== END ==
PROVIDERS: Family Provider Internal Medicine; PCP Student in an Organized Health Care Education/Training Program; Referring Provider Orthopaedic Surgery; Visit Provider Orthopaedic Surgery
DX: M47.26 Other spondylosis with radiculopathy, lumbar region (principal); M51.16 Intervertebral disc disorders with radiculopathy, lumbar region; M47.27 Other spondylosis with radiculopathy, lumbosacral region; M48.061 Spinal stenosis, lumbar region without neurogenic claudication; M48.07 Spinal stenosis, lumbosacral region; M25.551 Pain in right hip
CPT/HCPCS: 72148

== ENCOUNTER → 2023-05-26 12:09 | Outpatient (CLI) | payer MEDICARE, OTHER, SELFPAY ==
--- NOTE | 2023-05-26 | DI.CT.S_ITS ---
PROCEDURE: CT LUMBAR SPINE WO CON INDICATIONS: Spinal stenosis, lumbar region TECHNIQUE: Noncontrast 3 mm thick sections acquired from the T12 level to the sacrum. Sagittal and coronal reformats were constructed. For radiation dose reduction, the following was used: automated exposure control. COMPARISON: [facility], MR, MR LUMBAR SPINE WO CON, 12/22/2022, 11:12. FINDINGS: Image quality: Excellent. Bones: Straightening of the normal lumbar lordosis. Grade 1 anterolisthesis of L2 on L3. Multilevel degenerative changes with severe disc height loss with vacuum disc phenomenon and degenerative endplate changes at L1-L2, L3-L4 and L4-L5. Disc height loss and vacuum disc phenomenon at L2-L3 and L5-S1. Anterior osteophytosis is present. Facet arthropathy of the mid and lower lumbar spine. This results in severe central canal stenosis at L2-L3, L3-L4 and L4-L5. There is at least moderate to severe osseous neural foraminal narrowing at L3-L4, L4-5 and L5-S1 bilaterally. No acute vertebral body compression fractures. No suspicious lytic or blastic bony lesions. No pars defects. Soft tissues: No retroperitoneal masses or hematomas. Visualized aorta is normal in caliber. Atherosclerotic vascular calcifications. Nonobstructing sub 3 mm stones within the bilateral kidneys. IMPRESSION: 1. Multilevel degenerative changes of the lumbar spine as described above. 2. Severe central canal narrowing and at least moderate to severe neural foraminal narrowing of the lower lumbar spine. Dictated by: David Mccarty M.D. on 05/26/2023 at 16:17 Approved by: David Mccarty M.D. on 05/26/2023 at 16:22
== END ==
PROVIDERS: Family Provider Internal Medicine; PCP Student in an Organized Health Care Education/Training Program; Referring Provider Orthopaedic Surgery Orthopaedic Surgery of the Spine; Visit Provider Orthopaedic Surgery Orthopaedic Surgery of the Spine
DX: M48.062 Spinal stenosis, lumbar region with neurogenic claudication (principal)
CPT/HCPCS: 72131

== ENCOUNTER 2023-07-20 12:00 | Emergency (ER) | payer MEDICARE, OTHER, SELFPAY ==
[2023-07-20 12:02] VITALS: BP 175/81; PULSE 86; RESP 18; TEMP 36.5; O2SAT 98; BMI 31.1
--- NOTE | 2023-07-20 12:59 | DI.US.S_ITS ---
PROCEDURE: US PERIPH VENOUS LOW EXTREM RT INDICATIONS: RIGHT LOWER EXTREMITY PAIN TECHNIQUE: Real-time imaging, as well as color and pulse Doppler interrogation, were performed of the lower extremity deep veins from the inguinal ligament to the popliteal fossa, with documentation of the visualized calf veins. COMPARISON: None. FINDINGS: The common femoral, femoral, popliteal, and the visualized calf veins are normally compressible, and free of intraluminal thrombus. Color and pulse Doppler demonstrate normal phasic intraluminal flow. There is normal augmentation response to distal compression maneuver. A prominent right groin lymph node can be seen. A Mullins's cyst is seen that measures up to 3.1 cm. IMPRESSION: No findings of lower extremity deep venous thrombosis. Dictated by: David Arteaga M.D. on 07/20/2023 at 13:37 Approved by: David Arteaga M.D. on 07/20/2023 at 13:37
--- NOTE | 2023-07-20 13:08 | ED_ITS ---
HPI - Extremity Problem <Becky Tyler PA-C - Last Filed: 07/20/23 18:02> General Chief complaint: Extremity Problem,Nontraumatic Stated complaint: sent by PCP for Edema Time Seen by Provider: 07/20/23 12:25 Source: patient Mode of arrival: Ambulatory History of Present Illness HPI Narrative: Patient is an 87 year old male with a history of AFib, on apixaban BID, who presents with 3 days of right lower extremity swelling. He reports no injury or trauma to the lower extremity. Notes pain in his 1st MCP. He also has a wound on the bottom of his foot. He thinks his calf looked slightly reddened yester day. He denies a history of gout, rarely drinks alcohol, does not consume excessive meat or shellfish. Denies fever or chills. Related Data Home Medications Medication Instructions Recorded Confirmed apixaban 5 mg tablet (Eliquis) 5 mg PO BID 04/02/21 11/26/21 metoprolol tartrate 50 mg tablet 50 mg PO BID 04/02/21 11/26/21 loratadine 10 mg tablet 10 mg PO DAILY PRN allergy symptoms 11/24/21 11/26/21 phenylephrine HCl 10 mg tablet 10 mg PO Q4-6H PRN 11/24/21 11/26/21 Previous Rx's Medication Instructions Recorded omeprazole 20 mg tablet,delayed 20 mg PO BID #90 tabs 11/03/21 release hydrocodone 5 mg-acetaminophen 325 1 tab PO Q6H PRN pain #10 tabs 11/08/21 mg tablet ondansetron 4 mg disintegrating 4 mg PO Q8H PRN nausea and 11/08/21 tablet vomiting #10 tabs fluticasone propionate 220 2 puff inhalation BID #12 grams 11/23/21 mcg/actuation HFA aerosol inhaler Allergies Allergy/AdvReac Type Severity Reaction Status Date / Time No Known Drug Allergies Allergy Verified 11/26/21 15:42 Review of Systems <Becky Tyler PA-C - Last Filed: 07/20/23 18:02> Review of Systems ROS Unobtainable: All systems reviewed & are unremarkable except as noted in HPI and below Patient History <Becky Tyler PA-C - Last Filed: 07/20/23 18:02> Medical History Steroid-induced acne Lower urinary tract symptoms (LUTS) Osteoarthritis DIAMOND (obstructive sleep apnea) Hypertension Hyperlipidemia GERD (gastroesophageal reflux disease) Surgical History 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 Well-developed patient, in no distress. NEURO: AOx3. HEAD: Atraumatic. Normocephalic. EYES: Pupils equal round and reactive. Extraocular motions intact. No scleral icterus. No injection or drainage. ENT: Nose without bleeding or purulent drainage. Airway patent. RESPIRATORY: No distress. EXTREMITIES: Trace edema in the right foot compared to left. No erythema. Calf is supple and nontender. There is a 1.25 cm wound in the crease on the sole of his right foot in the fold were the 1st toe joins the foot. This appears chronic, noninfected. He has obvious changes to his toenails and toes due to fungal infection. DP pulses are strong, 2+ bilaterally. SKIN: No rash or erythema of visible areas Initial Vital Signs Initial Vital Signs: Vital Signs Temperature 97.7 F 07/20/23 12:02 Pulse Rate 86 07/20/23 12:02 Respiratory Rate 18 07/20/23 12:02 Blood Pressure 175/81 H 07/20/23 12:02 Pulse Oximetry 98 07/20/23 12:02 Oxygen Delivery Method Room Air 07/20/23 12:02 <Shaista Borrero MD - Last Filed: 07/20/23 18:16> Initial Vital Signs Initial Vital Signs: Vital Signs Temperature 97.7 F 07/20/23 12:02 Pulse Rate 86 07/20/23 12:02 Respiratory Rate 18 07/20/23 12:02 Blood Pressure 175/81 H 07/20/23 12:02 Pulse Oximetry 98 07/20/23 12:02 Oxygen Delivery Method Room Air 07/20/23 12:02 Course <Becky Tyler PA-C - Last Filed: 07/20/23 18:02> Orders Ordered: ED Orders 07/20/23 12:59 US periph venous low extrem rt Stat 07/20/23 13:20 Uric Acid Stat Vital Signs Vital signs: Vital Signs - 8 hr 07/20/23 12:02 07/20/23 14:36 Temperature 97.7 F Pulse Rate 86 57 L Respiratory Rate 18 20 Blood Pressure 175/81 H 158/78 H Pulse Oximetry 98 100 Oxygen Delivery Method Room Air Room Air <Shaista Borrero MD - Last Filed: 07/20/23 18:16> Orders Ordered: ED Orders 07/20/23 12:59 US periph venous low extrem rt Stat 07/20/23 13:20 Uric Acid Stat Vital Signs Vital signs: Vital Signs - 8 hr 07/20/23 12:02 07/20/23 14:36 Temperature 97.7 F Pulse Rate 86 57 L Respiratory Rate 18 20 Blood Pressure 175/81 H 158/78 H Pulse Oximetry 98 100 Oxygen Delivery Method Room Air Room Air MDM - Extremity (Nontraumatic) <Becky Tyler PA-C - Last Filed: 07/20/23 18:02> Lab Data Labs: Lab Results 07/20/23 Range/Units 13:20 Uric Acid 5.2 (3.5-8.5) mg/dL Imaging Data US - DVT: Radiologist's Impression: PROCEDURE: US PERIPH VENOUS LOW EXTREM RT INDICATIONS: RIGHT LOWER EXTREMITY PAIN TECHNIQUE: Real-time imaging, as well as color and pulse Doppler interrogation, were performed of the lower extremity deep veins from the inguinal ligament to the popliteal fossa, with documentation of the visualized calf veins. COMPARISON: None. FINDINGS: The common femoral, femoral, popliteal, and the visualized calf veins are normally compressible, and free of intraluminal thrombus. Color and pulse Doppler demonstrate normal phasic intraluminal flow. There is normal augmentation response to distal compression maneuver. A prominent right groin lymph node can be seen. A Mullins's cyst is seen that measures up to 3.1 cm. IMPRESSION: No findings of lower extremity deep venous thrombosis. Dictated by: David Arteaga M.D. on 07/20/2023 at 13:37 Approved by: David Arteaga M.D. on 07/20/2023 at 13:37 [facility] Narrative Medical decision making narrative: Multiple etiologies for patient's symptoms considered including, but not limited to: DVT, gout, benign swelling due to immobility Low pretest suspicion for DVT based on exam. Pain is located over 1st MCP, no erythema noted. Patient denies history of gout. The skin wound on the sole of his foot does not appear infected although maybe causing pain that radiates into the MCP joint. We will obtain lower extremity ultrasound to rule out DVT and check uric acid level to evaluate for gout. No DVT on US, does show Mullins's cyst. Uric acid normal. Based on these findings, I doubt an acute or urgent etiology for his trace lower extremity swelling. I advised continued supportive care to include elevating the extremity when resting, observing for signs of infection. I advised him to follow up with a curriculum designer related to the onychomycosis which I suspect will be difficult to treat as it was quite significant and the wound on his foot, as this will be very difficult to heal as it appears very chronic, and is likely complicated by the fungal infection. Patient's symptoms improved over duration of stay with above-stated therapies. Findings and discharge diagnosis discussed with patient/family followed by verbalization of understanding Return precautions discussed with patient/family whom verbalize understanding of diagnosis and plan <Shaista Borrero MD - Last Filed: 07/20/23 18:16> Lab Data Labs: Lab Results 07/20/23 Range/Units 13:20 Uric Acid 5.2 (3.5-8.5) mg/dL Discharge Plan Departure Patient Disposition: Home Clinical Impression: Onychomycosis, Edema of right foot Mullins's cyst, unruptured Qualifiers: Laterality: right Qualified Code(s): M71.21 - Synovial cyst of popliteal space [Mullins], right knee Instructions: DI for Mullins Cyst, DI for Dependent Edema, DI for Onychomycosis Activity Restrictions/Additional Instructions: * your ultrasound was negative for DVT (blood clot) and your uric acid level was normal, which makes gout unlikely. I do not see evidence of a skin infection. I am not sure why you have edema in your right lower extremity but I would continue elevating it whenever you were resting and watchful waiting. I would suggest following up with a curriculum designer regarding your toe fungus. *What to do: *Please continue to take your regular medications as directed. [ ] New medication prescriptions sent to your pharmacy: [ ] [ ] New medication written as a paper prescription [x] No new medications given *Please follow up with your primary care provider in 2-3 days, call for an appointment. Let them know you were seen in the Emergency Department and that we ask that you be seen in follow up. We will electronically transmit a record of today's note if your PCP is in our system *If you do not have a primary care provider please contact the [facility] Resource line at [phone]. They will ask some questions about your medical history and help get you set up with a doctor in the community. *Return to Emergency Department if you should have any new, worsening or concerning symptoms, such as [fever greater than 101 F, shaking chills, worsening pain, persistent vomiting or other concerning symptoms]. Prescriptions: No Action fluticasone propionate 220 mcg/actuation HFA aerosol inhaler 2 puff inhalation BID Qty: 12 2RF Rx Instructions: spray into the mouth and then swallow do NOT inhale the medication. Do NOT eat or drink for 30 minutes following administration. loratadine 10 mg tablet 10 mg PO DAILY PRN (Reason: allergy symptoms) phenylephrine HCl 10 mg tablet 10 mg PO Q4-6H PRN Eliquis 5 mg tablet 5 mg PO BID metoprolol tartrate 50 mg tablet 50 mg PO BID omeprazole 20 mg tablet,delayed release (DR/EC) 20 mg PO BID Qty: 90 0RF hydrocodone-acetaminophen 5-325 mg tablet 1 tab PO Q6H PRN (Reason: pain) Qty: 10 0RF ondansetron 4 mg tablet,disintegrating 4 mg PO Q8H PRN (Reason: nausea and vomiting) Qty: 10 0RF Referrals: Maggie Young ARNP [Primary Care Provider] - Stand Alone Forms: Patient Portal/API ED Sign-out <Shaista Borrero MD - Last Filed: 07/20/23 18:16> Cosign ED Attending Cosignature Attestation: I was immediately available in the department for consultation throughout this patient's visit. Shaista Borrero MD
[2023-07-20 13:47] LABS: Uric Acid 5.2 mg/dL (3.5-8.5)
[2023-07-20 14:36] VITALS: BP 158/78; PULSE 57; RESP 20; O2SAT 100
== END 2023-07-20 15:30 | disposition home or self-care (01) ==
PROVIDERS: Emergency Provider Physician Assistant; Family Provider Internal Medicine; PCP Nurse Practitioner Family
DX: B35.1 Tinea unguium (principal); M79.89 Other specified soft tissue disorders; M71.21 Synovial cyst of popliteal space [Baker], right knee
CPT/HCPCS: 36415; 84550; 93971; 99281

== ENCOUNTER 2024-07-01 11:47 | Emergency (ER) | payer MEDICARE, OTHER, SELFPAY ==
[2024-07-01] VITALS (7 sets, daily range): BP systolic 137–172; BP diastolic 70–110; PULSE 63–98; RESP 18–26; TEMP 36.6; O2SAT 96–98; BMI 31.0
--- NOTE | 2024-07-01 11:58 | EKG_ITS ---
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
--- NOTE | 2024-07-01 12:01 | ED_ITS ---
HPI - Chest Pain General Chief Complaint: Chest Pain Stated Complaint: fell hit chin and front of body- chest pain Time Seen by Provider: 07/01/24 12:01 Source: patient Mode of arrival: Ambulatory Limitations: no limitations History of Present Illness HPI narrative: 88-year-old gentleman anticoagulated on apixaban for history of atrial fibrillation, history of kidney stones notes that he has a drop foot and caught himself on a throw rug fell forward in an attempt to cause a least damage he was able to land more on his belly and his right side. This happened approximately 48 hours ago. He has been having increasing pain and notes that it is difficult for him to sit up move and twist. Once he is up walking is okay. He has not complaining of lower extremity or hip pain or tenderness. No upper extremity pain or tenderness. He notes that he hit his chin but did not specifically hit his head. He has no neck pain 48 hours after the incident. He presents today complaining that the right side of his chest is hurting now having bandlike pain around his mid abdomen and pain radiating to the tip of his right scapula. He has not complaining of palpitations or dyspnea. He has not needed pain medications other than his self-described single malt scotch Related Data Home Medications Medication Instructions Recorded Confirmed apixaban 5 mg tablet (Eliquis) 5 mg PO BID 04/02/21 11/26/21 metoprolol tartrate 50 mg tablet 50 mg PO BID 04/02/21 11/26/21 loratadine 10 mg tablet 10 mg PO DAILY PRN allergy symptoms 11/24/21 11/26/21 phenylephrine HCl 10 mg tablet 10 mg PO Q4-6H PRN 11/24/21 11/26/21 Previous Rx's Medication Instructions Recorded omeprazole 20 mg tablet,delayed 20 mg PO BID #90 tabs 11/03/21 release hydrocodone 5 mg-acetaminophen 325 1 tab PO Q6H PRN pain #10 tabs 11/08/21 mg tablet ondansetron 4 mg disintegrating 4 mg PO Q8H PRN nausea and 11/08/21 tablet vomiting #10 tabs fluticasone propionate 220 2 puff inhalation BID #12 grams 11/23/21 mcg/actuation HFA aerosol inhaler oxycodone 5 mg tablet 5 mg PO Q6H PRN pain #10 tabs 07/01/24 Allergies Allergy/AdvReac Type Severity Reaction Status Date / Time No Known Drug Allergies Allergy Verified 11/26/21 15:42 Review of Systems Review of Systems Narrative: Pertinent positive and negative findings as per HPI Patient History Medical History Steroid-induced acne Lower urinary tract symptoms (LUTS) Osteoarthritis DIAMOND (obstructive sleep apnea) Hypertension Hyperlipidemia GERD (gastroesophageal reflux disease) Surgical History History of bilateral knee arthroplasty History of right hip replacement Family History Son Cancer Brother Cancer Social History marital status: household members: none Smoking Status: Never smoker alcohol intake: current caffeine: Yes Smoking Status: Never smoker alcohol intake frequency: a few times a week Substance Use Type: does not use Exam Initial Vital Signs Initial Vital Signs: Vital Signs Temperature 97.8 F 07/01/24 11:51 Pulse Rate 98 H 07/01/24 11:51 Respiratory Rate 18 07/01/24 11:51 Blood Pressure 149/75 H 07/01/24 11:51 Pulse Oximetry 98 07/01/24 11:51 Oxygen Delivery Method Room Air 07/01/24 11:51 General: Healthy appearing, in no acute distress. Able to give a complete and coherent history. Well-nourished well-developed HEENT: Moist mucous membranes, normal sclera with reactive pupils, atraumatic, no bruising to the chin Neck: No tenderness to palpation Respiratory: Lungs are clear to auscultation, no wheezing no rales no rhonchi. Full and symmetrical air movement Chest: He is tender in the right middle to lower portion of the chest radiating up into the sternum and toward the scapula. Pressure into the right upper quadrant does reproduce pain. Cardiac: Regular rate and rhythm no murmurs no bruits Abdomen: Soft, nontender, good bowel tones, no flank pain Skin: Warm and dry, no rashes Neurologic: Grossly neurologically intact with no obvious asymmetries or abnormalities Extremities: Minor contusions to the knees, no obvious fractures or large bleeding noted with extremities Psych: Cooperative, appropriate insight and affect Course Orders Ordered: ED Orders 07/01/24 11:58 EKG-12 Lead Stat 07/01/24 12:05 Complete Blood Count AUTO DIFF Stat Comprehensive Metabolic Panel Stat Lipase Stat Magnesium Stat NT-proBNP (BNP-Adult 18+) Stat PTT Partial Thromboplastin Robert Stat Prothrombin Time INR Stat Troponin & CK Cardiac Panel Stat 07/01/24 12:12 CT chest abd pel w con Stat Discontinued Medications Aspirin (Aspirin 81 Mg Chew Tab) 324 mg PO NOW ONE Stop: 07/01/24 11:59 Vital Signs Vital signs: Vital Signs - 8 hr 07/01/24 11:51 07/01/24 12:04 07/01/24 12:05 Temperature 97.8 F Pulse Rate 98 H 89 89 Respiratory Rate 18 22 Blood Pressure 149/75 H Pulse Oximetry 98 98 98 Oxygen Delivery Method Room Air 07/01/24 12:05 07/01/24 12:30 07/01/24 12:30 Temperature Pulse Rate 70 Respiratory Rate 23 Blood Pressure 172/92 H 137/70 Pulse Oximetry 96 Oxygen Delivery Method 07/01/24 12:45 07/01/24 12:45 07/01/24 13:00 Temperature Pulse Rate 70 Respiratory Rate 19 Blood Pressure 144/74 H 146/79 H Pulse Oximetry 98 Oxygen Delivery Method 07/01/24 13:00 Temperature Pulse Rate 68 Respiratory Rate 22 Blood Pressure Pulse Oximetry 96 Oxygen Delivery Method MDM - Chest Pain Lab Data 07/01/24 12:05 07/01/24 12:05 Labs: Lab Results 07/01/24 Range/Units 12:05 WBC 7.9 (4.5-11.0) X10^3/uL RBC 4.48 L (4.5-5.9) X10^6/uL Hgb 13.7 (13.5-17.5) g/dL Hct 40.9 L (41-53) % MCV 91.4 (80-100) fL MCH 30.6 (26-34) PG MCHC 33.5 (30-36) % RDW 13.7 (11.6-14.8) % Plt Count 283 (150-400) X10^3/uL Neut % (Auto) 74.6 (50-75) % Lymph % (Auto) 13.5 L (25-40) % Berks % (Auto) 8.6 (3-14) % Eos % (Auto) 2.6 (2-4) % Baso % (Auto) 0.7 (0-2) % Neut # (Auto) 5900 (8308-4285) /uL Lymph # (Auto) 1100 (6998-0499) /uL Berks # (Auto) 700 (0-900) /uL Eos # (Auto) 200 (0-450) /uL Baso # (Auto) 100 (0-100) /uL PT 13.6 H (9.4-12.5) SECONDS INR 1.2 (0.9-1.3) APTT 43 H (25.1-36.5) SECONDS Sodium 137 (137-145) mmol/L Potassium 4.2 (3.4-5.1) mmol/L Chloride 104 (98-107) mmol/L Carbon Dioxide 25 (22-32) mmol/L BUN 20 (9-20) mg/dL Creatinine 0.87 (0.66-1.25) mg/dL Estimated GFR > 60 (>60) mL/min BUN/Creatinine Ratio 23.0 H (6-22) Glucose 102 (80-110) mg/dL Calcium 9.6 (8.4-10.2) mg/dL Magnesium 2.2 (1.6-2.3) mg/dL Total Bilirubin 0.6 (0.2-1.3) mg/dL AST 31 (17-59) IU/L ALT 22 (<50) IU/L Alkaline Phosphatase 72 (38-126) U/L Total Creatine Kinase 78 (55-170) U/L Troponin I < 0.012 (0.01-0.034) ng/mL NT-Pro-B Natriuret Pep 81 (<450) pg/mL Total Protein 8.3 H (6.3-8.2) g/dL Albumin 4.7 (3.5-5.0) g/dL Globulin 3.6 (1.7-4.1) g/dL Albumin/Globulin Ratio 1.3 (1.0-2.8) Lipase 66 (23-300) U/L Imaging Data CT chest abdomen pelvis: Radiologist's Impression: PROCEDURE: CT CHEST ABD PEL W CON INDICATIONS: trauma, Right lower chest and upper abd pain TECHNIQUE: After the administration of intravenous contrast, 5 mm thick sections acquired from the lung apices to the symphysis. 2.5 mm thick coronal and sagittal reformats were acquired. Additional 7 mm thick coronal maximum intensity projection (MIP) reformats acquired through the lungs. Optional 10-minute delayed imaging may be performed from the kidneys to the bladder. For radiation dose reduction, the following was used: automated exposure control, adjustment of mA and/or kV according to patient size. COMPARISON: [facility], CT, CT LUMBAR SPINE WO CON, 05/26/2023, 12:30. [facility], CT, CT KIDNEY URETER BLADDER (KUB), 11/08/2021, 2:12. FINDINGS: Image quality: There is artifact associated with the metallic hardware. Artifact from the metallic hardware is reduced by metal reconstruction algorithm. CHEST: Lower Neck: No enlarged lymph nodes. Thyroid: No thyroid nodules which require sonographic evaluation. Axillae: No enlarged lymph nodes. Chest Wall: No subcutaneous gas. In this patient with this given history, scrutiny is given to the right-sided ribs. No displaced fractures are seen. No fracture of the sternum can be seen. Lungs and Pleura: No pulmonary contusions or lacerations. No acute airspace opacities. No pneumothorax or hemothorax. Mediastinum: No mediastinal hematomas. Heart size is normal. At least moderate coronary artery calcification can be seen. No pericardial effusion. Thoracic aorta and pulmonary arteries demonstrate normal size and enhancement. No mediastinal or hilar adenopathy. Esophagus is normal in caliber. There is a small hiatal hernia. ABDOMEN: Liver: No lacerations. Gallbladder: No radiopaque gallstones or wall thickening. Biliary ducts: No biliary dilation. Pancreas: Homogenous enhancement. Spleen: Homogenous enhancement without laceration or hematoma. Adrenal Glands: Symmetric enhancement. Kidneys and Ureters: Symmetric enhancement. No hydronephrosis. No solid mass. No complex renal cystic lesion which requires follow up. There is a 5 mm nonobstructing right-sided kidney stone measuring three hundred fifty Hounsfield units. Stomach and Bowel: Normal colonic caliber, without significant wall thickening. Colonic diverticulosis is seen, without findings of active diverticulitis. No dilated loops of small bowel are seen. Peritoneum: No abnormal intraperitoneal fluid. No free air. Ventral Wall: No hernia. Abdominal Nodes: No retroperitoneal or mesenteric adenopathy by size criteria. Vessels: Aorta and inferior vena cava are normal in size. Atherosclerotic calcification is noted. PELVIS: Pelvic Organs: Unremarkable. Bladder: Normal thickness. Pelvic Nodes: No enlarged lymph nodes. Miscellaneous: There is a moderate fat containing right inguinal hernia Bones: Mild dextroconvex scoliotic curvature is seen. There is significant lumbar spine degenerative change. Pelvic ring and hip joints appear intact. Right hip arthroplasty hardware is seen. Focal left hip degenerative change is seen. IMPRESSION: No displaced rib fracture or pneumothorax can be seen. No sternal fracture is seen. Additional findings: Least moderate coronary artery calcification Small hiatal hernia 5 mm nonobstructing right-sided kidney stone Diverticulosis, without active diverticulitis Significant degenerative change of the lumbar spine and the left hip Right hip arthroplasty hardware Moderate fat containing right inguinal hernia Dictated by: David Arteaga M.D. on 07/01/2024 at 11:57 MDM Narrative Medical decision making narrative: CC: Fall at home, mechanical landing on his abdomen and right side of his chest, 48 hours ago increasing pain and now bandlike pain around his lower chest/upper abdomen Complicating co-morbidities: Anticoagulated on apixaban, history of atrial fibrillation Data collected from: patient Medical records reviewed: Medical records with recent Mullins's cyst, kidney stones, EGD for dysphagia are reviewed Differential considered: Rib fractures, pneumothorax, hemothorax, compression fractures, intra-abdominal bleeding or at least hepatic subcapsular bleeding, acute coronary syndrome Exam documented above, pertinent findings include: Exam is fairly benign. He is tender when ribcage is compressed in the mid right lower axillary line. Pain is reproduced with right upper quadrant palpation. No overt abdominal pain. No tenderness with manipulation of pelvic ring. No bruising or contusion is appreciated. No point tenderness anywhere along his cervical spine Lab Test results independently reviewed as above. Pertinent findings: CBC is unremarkable, no anemia PTT is slightly elevated at 43, PTT is appropriate at 1.2 Chemistries are reassuring. Normal creatinine Independently reviewed EKG: Sinus rhythm at a rate of 85. No acute ischemic change Imaging studies independently reviewed: CT scan of the chest abdomen and pelvis does not show acute pathology from his fall specifically no rib fractures, sternal fractures, new thoracic compression fractures, no hemopneumothorax and no liver laceration Discussion: 88-year-old gentleman who fell forward on his abdomen and right side of his chest 48 hours ago after tripping on a rug at home. Increasing pain today. Of note he did fill up his truck and go to [facility] area and was able to unload the truck yesterday. CT scan does not show any fractures, hemopneumothorax or other significant findings. I suspect that he is at 48 hours post injury and likely exacerbated symptoms with the twisting and turning emptying and loading his truck yesterday. Reassurance is given. He does have oxycodone available at home, isn't sure how many it is left over from a number of years ago. He would prefer to start with that. We will give him a prescription for 10 that he can [employer] of the [employer] tomorrow if he feels that he needs them. Did recommend walking but suggested no lifting twisting or turning for at least a week. Questions are answered and he is safe for discharge Discharge Plan Departure Patient Disposition: Home Clinical Impression: Pain in rib, Chest pain, musculoskeletal Fall Qualifiers: Encounter type: initial encounter Qualified Code(s): W19.XXXA - Unspecified fall, initial encounter Instructions: DI for Rib Contusion Activity Restrictions/Additional Instructions: Thank you for coming in today, I am sorry that you are suffering more after this fall on Tuesday We did a CT scan of your chest abdomen and pelvis to make sure that there were no fractures, no bleeding and everything was in the correct positions. You are scan was very reassuring. There is no sign of rib fracture, breastbone fracture, no new fractures along your spine and all of the organs in your abdomen appear as they should. It has not uncommon to be increasingly sore for the 1st 2 days after an injury. Using 400 mg of ibuprofen (2 tkbv-moe-sepvctp pills) and 1 Tylenol every 6 hours can be very helpful in controlling pain. For severe pain you can add oxycodone to this. Those with the little bitty white pills that you mentioned you had at home. If you do need more, [place] [facility], you do not need to fill it if you do not need narcotic for pain control. Moving, walking, making sure that you are taking deep breaths to keep your lungs fully inflated will help you heal more quickly. I would suggest avoiding bending, lifting, twisting for the next week If you find that you are getting worse or develop any new symptoms, please feel free to return to the emergency department for further evaluation. Prescriptions: New oxycodone 5 mg tablet 5 mg PO Q6H PRN (Reason: pain) Qty: 10 0RF No Action fluticasone propionate 220 mcg/actuation HFA aerosol inhaler 2 puff inhalation BID Qty: 12 2RF Rx Instructions: spray into the mouth and then swallow do NOT inhale the medication. Do NOT eat or drink for 30 minutes following administration. loratadine 10 mg tablet 10 mg PO DAILY PRN (Reason: allergy symptoms) phenylephrine HCl 10 mg tablet 10 mg PO Q4-6H PRN Eliquis 5 mg tablet 5 mg PO BID metoprolol tartrate 50 mg tablet 50 mg PO BID omeprazole 20 mg tablet,delayed release (DR/EC) 20 mg PO BID Qty: 90 0RF hydrocodone-acetaminophen 5-325 mg tablet 1 tab PO Q6H PRN (Reason: pain) Qty: 10 0RF ondansetron 4 mg tablet,disintegrating 4 mg PO Q8H PRN (Reason: nausea and vomiting) Qty: 10 0RF Referrals: Maggie Young ARNP [Primary Care Provider] - Stand Alone Forms: Patient Portal/API/Survey
[2024-07-01 12:11] LABS: Add Manual Diff / Slide Review NO; Basophils Absolute Auto 100 /uL (0-100); Basophils Percent Auto 0.7 % (0-2); Eosinophils Absolute Auto 200 /uL (0-450); Eosinophils Percent Auto 2.6 % (2-4); Hematocrit 40.9 % (41-53); Hemoglobin 13.7 g/dL (13.5-17.5); Lymphocytes Absolute Auto 1100 /uL (1100-4500); Lymphocytes Percent Auto 13.5 % (25-40); Mean Corpuscular HGB Conc 33.5 % (30-36); Mean Corpuscular Hemoglobin 30.6 PG (26-34); Mean Corpuscular Volume 91.4 fL (80-100); Monocytes Absolute Auto 700 /uL (0-900); Monocytes Percent Auto 8.6 % (3-14); Neutrophils Absolute Auto 5900 /uL (1500-7000); Neutrophils Percent Auto 74.6 % (50-75); Platelet Count 283 X10^3/uL (150-400); Red Blood Cell Count 4.48 X10^6/uL (4.5-5.9); Red Cell Distribution Width 13.7 % (11.6-14.8); White Blood Cell Count 7.9 X10^3/uL (4.5-11.0)
--- NOTE | 2024-07-01 12:12 | DI.CT.S_ITS ---
PROCEDURE: CT CHEST ABD PEL W CON INDICATIONS: trauma, Right lower chest and upper abd pain TECHNIQUE: After the administration of intravenous contrast, 5 mm thick sections acquired from the lung apices to the symphysis. 2.5 mm thick coronal and sagittal reformats were acquired. Additional 7 mm thick coronal maximum intensity projection (MIP) reformats acquired through the lungs. Optional 10-minute delayed imaging may be performed from the kidneys to the bladder. For radiation dose reduction, the following was used: automated exposure control, adjustment of mA and/or kV according to patient size. COMPARISON: [facility], CT, CT LUMBAR SPINE WO CON, 05/26/2023, 12:30. [facility], CT, CT KIDNEY URETER BLADDER (KUB), 11/08/2021, 2:12. FINDINGS: Image quality: There is artifact associated with the metallic hardware. Artifact from the metallic hardware is reduced by metal reconstruction algorithm. CHEST: Lower Neck: No enlarged lymph nodes. Thyroid: No thyroid nodules which require sonographic evaluation. Axillae: No enlarged lymph nodes. Chest Wall: No subcutaneous gas. In this patient with this given history, scrutiny is given to the right-sided ribs. No displaced fractures are seen. No fracture of the sternum can be seen. Lungs and Pleura: No pulmonary contusions or lacerations. No acute airspace opacities. No pneumothorax or hemothorax. Mediastinum: No mediastinal hematomas. Heart size is normal. At least moderate coronary artery calcification can be seen. No pericardial effusion. Thoracic aorta and pulmonary arteries demonstrate normal size and enhancement. No mediastinal or hilar adenopathy. Esophagus is normal in caliber. There is a small hiatal hernia. ABDOMEN: Liver: No lacerations. Gallbladder: No radiopaque gallstones or wall thickening. Biliary ducts: No biliary dilation. Pancreas: Homogenous enhancement. Spleen: Homogenous enhancement without laceration or hematoma. Adrenal Glands: Symmetric enhancement. Kidneys and Ureters: Symmetric enhancement. No hydronephrosis. No solid mass. No complex renal cystic lesion which requires follow up. There is a 5 mm nonobstructing right-sided kidney stone measuring three hundred fifty Hounsfield units. Stomach and Bowel: Normal colonic caliber, without significant wall thickening. Colonic diverticulosis is seen, without findings of active diverticulitis. No dilated loops of small bowel are seen. Peritoneum: No abnormal intraperitoneal fluid. No free air. Ventral Wall: No hernia. Abdominal Nodes: No retroperitoneal or mesenteric adenopathy by size criteria. Vessels: Aorta and inferior vena cava are normal in size. Atherosclerotic calcification is noted. PELVIS: Pelvic Organs: Unremarkable. Bladder: Normal thickness. Pelvic Nodes: No enlarged lymph nodes. Miscellaneous: There is a moderate fat containing right inguinal hernia Bones: Mild dextroconvex scoliotic curvature is seen. There is significant lumbar spine degenerative change. Pelvic ring and hip joints appear intact. Right hip arthroplasty hardware is seen. Focal left hip degenerative change is seen. IMPRESSION: No displaced rib fracture or pneumothorax can be seen. No sternal fracture is seen. Additional findings: Least moderate coronary artery calcification Small hiatal hernia 5 mm nonobstructing right-sided kidney stone Diverticulosis, without active diverticulitis Significant degenerative change of the lumbar spine and the left hip Right hip arthroplasty hardware Moderate fat containing right inguinal hernia Dictated by: David Arteaga M.D. on 07/01/2024 at 11:57 Approved by: David Arteaga M.D. on 07/01/2024 at 12:02
[2024-07-01 12:19] LABS: INR 1.2 (0.9-1.3); Prothrombin Time 13.6 SECONDS (9.4-12.5)
[2024-07-01 12:22] LABS: PTT Partial Thromboplastin Tim 43 SECONDS (25.1-36.5)
[2024-07-01 12:23] LABS: Alanine Aminotransferase 22 IU/L (<50); Albumin 4.7 g/dL (3.5-5.0); Albumin Globulin Ratio 1.3 (1.0-2.8); Alkaline Phosphatase 72 U/L (38-126); Aspartate Aminotransferase 31 IU/L (17-59); Bilirubin Total 0.6 mg/dL (0.2-1.3); Blood Urea Nitrogen 20 mg/dL (9-20); Calcium 9.6 mg/dL (8.4-10.2); Carbon Dioxide 25 mmol/L (22-32); Chloride 104 mmol/L (98-107); Creatine Kinase 78 U/L (55-170); Estimated Glomerular Filt Rate > 60 mL/min (>60); Globulin 3.6 g/dL (1.7-4.1); Glucose 102 mg/dL (80-110); HEMOLYSIS < 15 (0-50); Lipase 66 U/L (23-300); Magnesium 2.2 mg/dL (1.6-2.3); Potassium 4.2 mmol/L (3.4-5.1); Sodium 137 mmol/L (137-145); Total Protein 8.3 g/dL (6.3-8.2)
[2024-07-01 12:34] LABS: NT-proBNP (BNP-Adult 18+) 81 pg/mL (<450); Troponin I < 0.012 ng/mL (0.01-0.034)
== END 2024-07-01 13:46 | disposition home or self-care (01) ==
PROVIDERS: Emergency Provider Emergency Medicine; Family Provider Internal Medicine; PCP Nurse Practitioner Family
DX: R07.89 Other chest pain (principal); R07.81 Pleurodynia; I44.0 Atrioventricular block, first degree; W01.0XXA Fall on same level from slipping, tripping and stumbling without subsequent striking against object, initial encounter; Z79.01 Long term (current) use of anticoagulants
CPT/HCPCS: 36415; 71260; 74177; 80053; 82550; 83690; 83735; 83880; 84484; 85025; 85610; 85730; 93005; 99283; 99284; Q9967